=== PATIENT | female | born 1995 ===

== ENCOUNTER 2023-07-19 17:45 | Outpatient (REF) | payer MEDICAID, SELFPAY | END 2023-07-19 17:46 | disposition home or self-care (01) | LOC: HO.HHCL 17:45 | PROVIDERS: Visit Provider Emergency Medicine | DX: R30.0 Dysuria (principal) | CPT/HCPCS: 87086; 87088; 87186 ==

== ENCOUNTER 2023-08-03 10:36 | Outpatient (REF) | payer MEDICAID, OTHER, SELFPAY ==
--- NOTE | ~2023-08-03 | US_ITS ---
EXAMINATION: US DIAGNOSTIC ULTRASOUND BREAST, LEFT CLINICAL INFORMATION: 27-year-old female, complaining of palpable abnormality left breast 11:00 axis, approximately 3 cm from the nipple, sinus 3 months. No associated pain, no history of trauma, no history of infection or mastitis. Patient states the palpable focus may be decreasing in size although this is subjective. COMPARISON: None available. TECHNIQUE: Ultrasound of the breast is performed with real-time boyer scale imaging and color Doppler. Attention was given to the 11:00 axis, in the region of palpable concern left breast. FINDINGS: Within the left breast, 11:00 axis, 3 cm from the nipple, correlating with the focus of palpable concern, is an irregular hypoechoic lesion/mass, with indistinct borders, and no good through transmission, no internal color Doppler flow although there is flow just adjacent, measuring approximately 0.7 x 0.5 x 0.5 cm. It is surrounded by mildly echogenic fat and dense fibroglandular stroma. This is indeterminant, although may represent resolving infection, resolving trauma, although there is no history is to support these diagnoses. Ultimately, finding is indeterminate and ultrasound-guided biopsy is recommended. Results were discussed with the patient at time of visit, with the use of a light fixture servicer. US/US breast LT limited mamm only IMPRESSION: Indeterminate palpable lesion left breast 11:00 axis, 3 cm from the nipple, as described above. Ultrasound-guided biopsy recommended to further characterize. Findings and plan were discussed with the patient utilizing a light fixture servicer, and the patient appears to understand. ASSESSMENT: BI-RADS 4: Suspicious (subcategory 4A: Low suspicion for malignancy) RECOMMENDATION: Ultrasound-guided biopsy left breast.
== END 2023-08-03 10:37 | disposition home or self-care (01) ==
LOC: HO.MAMMO 10:36
PROVIDERS: PCP Emergency Medicine; Visit Provider Emergency Medicine
DX: N63.22 Unspecified lump in the left breast, upper inner quadrant (principal)
CPT/HCPCS: 76642

== ENCOUNTER → 2023-08-03 10:52 | Outpatient (BNV) | payer SELFPAY | PROVIDERS: PCP Emergency Medicine; Visit Provider Radiology Diagnostic Radiology | DX: N63.22 Unspecified lump in the left breast, upper inner quadrant (principal) | CPT/HCPCS: 76642 ==

== ENCOUNTER → 2023-08-04 08:14 | Outpatient (BNVA) | payer MEDICAID, OTHER, SELFPAY | PROVIDERS: PCP Emergency Medicine; Visit Provider Surgery | DX: R92.8 Other abnormal and inconclusive findings on diagnostic imaging of breast (principal) | CPT/HCPCS: 99202 ==

== ENCOUNTER 2023-08-04 08:15 | Outpatient (AMB) | payer SELFPAY ==
--- NOTE | 2023-08-04 08:16 | MHC.OFFVIS ---
Intake Vital Signs 08/04/23 08:28 Height 5 ft 7 in Weight 141 lb 8 oz BMI 22.2 BP 123/71 Blood Pressure Location Lt brachial Position Sitting Pulse 98 Intake Visit Reasons: U/s bx left breast, 11 o'clock symmetry Intake Note: Patient is seen in office for ultrasound biopsy consult of the left breast 11 o'clock symmetry. 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 She 1st noted the lump approximately 3 months ago and initially had pain associated with the lesion. She denied any overlying skin changes or nipple discharge.. She underwent workup with ultrasound of the left breast. This confirmed a hypoechoic density in the 11 o'clock position approximately 3 cm from the nipple measuring 0.7 x 0.5 x 0.5 cm felt to be indeterminate therefore ultrasound-guided core biopsy was recommended. She denies a previous history of breast problems or breast surgery. She is G0. Family history is significant for maternal grandmother with breast cancer. [facility] Family History Maternal Grandmother Breast cancer Paternal Grandmother Cancer of unknown origin Social History Alcohol intake: never Patient Tobacco Use Status: Never used Tobacco Female Reproductive History Menstrual Age of Menarche: 13 Date of last menstrual period: 07/20/23 Total pregnancies: 0 Review of Systems Const All systems reviewed & are unremarkable except as noted in HPI and below Denies chills, Denies fever(s), Denies headache(s), Denies poor appetite and Denies weakness ENT Denies headache(s) Card Denies chest pain, Denies irregular heart rhythm, Denies palpitations and Denies dyspnea Resp Denies cough, Denies excessive phlegm production and Denies dyspnea GI Denies abdominal pain, Denies bloating, Denies change in bowel habits, Denies constipation, Denies heartburn, Denies diarrhea, Denies nausea and Denies vomiting Denies urinary frequency Musc Denies back pain, Denies muscle weakness and Denies numbness Skin/Breast Denies changing lesions and Denies unusual bruising Neuro Denies headache(s), Denies numbness, Denies paresthesias and Denies weakness Psych Denies anxiety and Denies depression Endo Denies palpitations Darrin/Lymph Denies lymphadenopathy Physical Exam Const General: cooperative and no acute distress Nutritional Appearance: well nourished Orientation/consciousness: patient oriented x3 Limitations: no limitations HEENT Head: Yes normocephalic and Yes atraumatic Ears: hearing grossly normal bilaterally Chest Other: Mild fibrocystic pattern with no discrete mass appreciated in the left breast 10 o'clock position. Left breast: No skin change, no nipple retraction, no nipple discharge, no palpable mass, no enlarged lymph nodes. Right breast: No skin change, no nipple retraction, no nipple discharge, no palpable mass, no enlarged lymph nodes Resp Effort & Inspection: normal respiratory effort, no audible wheezes, no cough and no respiratory distress Cardio Jugular venous distension: no JVD GI Inspection: Yes normal to inspection Skin Other: Warm, dry, no rash Neuro General: patient oriented x3 Extrem General: Yes no clubbing, cyanosis or edema Assessment & Plan Assessment & Plan (1) Abnormal ultrasound of breast: Code(s): R92.8 - Other abnormal and inconclusive findings on diagnostic imaging of breast Plan 27-year-old female patient presenting with a three-month history of a palpable mass in the left breast noted on self examination. Indeterminate mass was identified by ultrasound an ultrasound-guided core biopsy recommended. [facility]. I recommended the patient return approximately 5-7 days following this procedure to review the pathology results. She expressed understanding and agrees with the plan. Orders: Orders US breast ndl core biopsy LT Today R92.8 - Other abnormal and inconclusive findings on diagnostic imaging of breast Coding Level of Care Code New Pt Level 4 (81667) Diagnoses Abnormal ultrasound of breast R92.8
[2023-08-04 08:28] VITALS: BP 123/71; PULSE 98; BMI 22.2
== END 2023-08-04 08:42 | disposition home or self-care (01) ==
PROVIDERS: PCP Emergency Medicine; Visit Provider Surgery
DX: R92.8 Other abnormal and inconclusive findings on diagnostic imaging of breast (principal)
CPT/HCPCS: 99204

== ENCOUNTER 2023-08-07 07:46 | Outpatient (REF) | payer MEDICAID, OTHER, SELFPAY ==
--- NOTE | ~2023-08-07 | US_ITS ---
PROCEDURE: US GUIDED BREAST BIOPSY, LEFT CLINICAL INFORMATION: Hypoechoic slightly irregular mass left breast 11:00 axis, 3 cm from the nipple, which was palpable to the patient, recommended for ultrasound-guided biopsy. COMPARISON: Ultrasound 08/03/2023. PROCEDURAL DETAILS: The details of the procedure, as well as the risks, benefits, and alternatives to the procedure were explained to the patient in detail and all of her questions were answered, after which written informed consent was obtained. Site and side were confirmed. Prior to the procedure, sonography revealed a slightly irregular hypoechoic mass with irregular margins measuring 0.5 x 0.7 x 0.5 cm at the 11:00 axis left breast, 3 cm from the nipple. A time-out was performed, the lesion intended for biopsy was targeted, and the skin of the left breast was then marked, prepped and draped in the usual sterile fashion. Using sonographic guidance, sterile technique, and 1% lidocaine without epinephrine for local anesthesia, multiple core biopsies were obtained through the targeted area with a 14G spring loaded Adynxxera core biopsy device. There was real-time confirmation of appropriate needle passage. Sampling was documented. At the completion of tissue sampling, a single butterfly-shaped metallic clip was deposited at the biopsy site. There was no evidence of immediate complication. SPECIMEN: 3 well formed core samples were obtained. DIGITAL POST-PROCEDURE MAMMOGRAPHY: Not performed due to patient age. The patient tolerated the procedure well and, after assuring adequate hemostasis, was discharged in good condition after reviewing postbiopsy breast care instructions. Final pathology results are pending. US/US breast ndl core biopsy LT IMPRESSION: 1. No immediate complication from ultrasound-guided percutaneous biopsy left breast. 2. Ultrasound was used to localize and guide marker clip placement. 3. Post procedure mammography was not performed due to patient age. Clip placement looks excellent on ultrasound images. 4. Final pathology results are pending. A separate report with final recommendations will be issued once these results are made available.
[2023-08-07] MEDS: Lidocaine HCl 1 % 20 ML VIAL 9 ML SUBCUT (09:02)
[2023-08-07] MEDS: Sodium Bicarbonate 8.4% 50 MEQ/50 ML VIAL SUBCUT (09:04)
== END 2023-08-07 07:47 | disposition home or self-care (01) ==
LOC: HO.MAMMO 07:46
PROVIDERS: PCP Emergency Medicine; Visit Provider Emergency Medicine
DX: R92.8 Other abnormal and inconclusive findings on diagnostic imaging of breast (principal)
CPT/HCPCS: 19083; 88305; 88341; 88342; 88360; A4648; C1894

== ENCOUNTER → 2023-08-07 08:00 | Outpatient (BNV) | payer SELFPAY | PROVIDERS: PCP Emergency Medicine; Visit Provider Radiology Diagnostic Radiology | DX: D24.2 Benign neoplasm of left breast (principal) | CPT/HCPCS: 19083 ==

== ENCOUNTER 2023-08-15 13:19 | Outpatient (AMB) | payer SELFPAY ==
--- NOTE | 2023-08-15 13:28 | MHC.OFFVIS ---
Intake Intake Visit Reasons: Left breast density, biopsy results Intake Note: Patient is seen in office for biopsy results, following left breast density. Pt c/o: denies any concerns here for results Chair Frame Builder Required: Yes Chair Frame Builder Language: Crop Grain Or Livestock Farmer Name: Fabiola GIRALDO Information Interpreted: non-clinical & clinical Franchise Development Manager: Franchise Development Manager Present Accompanied by: Family/Other Allergies No Known Allergies [No Known Allergies*] Allergy (Unverified 08/15/23 13:38) Medication List - Last Reconciled 08/15/23 by Juanito Rose MD No Known Home Meds HPI HPI Comments History of Present Illness Details 27-year-old female patient found to have a palpable mass on self-examination in the left breast at approximately the 11 o'clock position. She 1st noted the lump approximately 3 months ago and initially had pain associated with the lesion. She denied any overlying skin changes or nipple discharge.. She underwent workup with ultrasound of the left breast. This confirmed a hypoechoic density in the 11 o'clock position approximately 3 cm from the nipple measuring 0.7 x 0.5 x 0.5 cm felt to be indeterminate therefore ultrasound-guided core biopsy was recommended. She denies a previous history of breast problems or breast surgery. She is G0. Family history is significant for maternal grandmother with breast cancer. She underwent ultrasound-guided core biopsy on 08/07/2023. Pathology revealed: Benign breast tissue with dense lymphohistiocytic infiltrate; negative for malignancy. A copy of the pathology report was provided to the patient. She tolerated the procedure well and denies any ongoing breast symptoms. [facility] Family History Maternal Grandmother Breast cancer Paternal Grandmother Cancer of unknown origin Social History Alcohol intake: never Patient Tobacco Use Status: Never used Tobacco Female Reproductive History Menstrual Age of Menarche: 13 Review of Systems Const All systems reviewed & are unremarkable except as noted in HPI and below Denies chills, Denies fever(s), Denies headache(s), Denies poor appetite and Denies weakness ENT Denies headache(s) Card Denies chest pain, Denies irregular heart rhythm, Denies palpitations and Denies dyspnea Resp Denies cough, Denies excessive phlegm production and Denies dyspnea GI Denies abdominal pain, Denies bloating, Denies change in bowel habits, Denies constipation, Denies heartburn, Denies diarrhea, Denies nausea and Denies vomiting Denies urinary frequency Musc Denies back pain, Denies muscle weakness and Denies numbness Skin/Breast Denies changing lesions and Denies unusual bruising Neuro Denies headache(s), Denies numbness, Denies paresthesias and Denies weakness Psych Denies anxiety and Denies depression Endo Denies palpitations Darrin/Lymph Denies lymphadenopathy Physical Exam Const General: cooperative and no acute distress Nutritional Appearance: well nourished Orientation/consciousness: patient oriented x3 Limitations: no limitations HEENT Head: Yes normocephalic and Yes atraumatic Ears: hearing grossly normal bilaterally Chest Other: Exam deferred Resp Effort & Inspection: normal respiratory effort, no audible wheezes, no cough and no respiratory distress Cardio Jugular venous distension: no JVD GI Inspection: Yes normal to inspection Skin Other: Warm, dry, no rash Neuro General: patient oriented x3 Extrem General: Yes no clubbing, cyanosis or edema Assessment & Plan Assessment & Plan (1) Abnormal ultrasound of breast: Code(s): R92.8 - Other abnormal and inconclusive findings on diagnostic imaging of breast Plan 27-year-old female patient found to have a palpable mass in the left breast, status post ultrasound-guided core biopsy last week. She tolerated the procedure well and denies any ongoing breast symptoms. Pathology is benign with no evidence of malignancy. She should continue observation and call for any new concerns. Coding Level of Care Code Est Pt Level 3 (27952) Diagnoses Abnormal ultrasound of breast R92.8
== END 2023-08-15 13:55 | disposition home or self-care (01) ==
PROVIDERS: PCP Emergency Medicine; Visit Provider Surgery
DX: R92.8 Other abnormal and inconclusive findings on diagnostic imaging of breast (principal)
CPT/HCPCS: 99213

== ENCOUNTER → 2023-08-15 13:19 | Outpatient (BNVA) | payer MEDICAID, OTHER, SELFPAY | PROVIDERS: PCP Emergency Medicine; Visit Provider Surgery | DX: R92.8 Other abnormal and inconclusive findings on diagnostic imaging of breast (principal) | CPT/HCPCS: 99212 ==

== ENCOUNTER 2023-09-29 17:45 | Outpatient (REF) | payer MEDICAID, OTHER, SELFPAY | END 2023-09-29 17:46 | disposition home or self-care (01) | LOC: HO.HHCLNP 17:45 | PROVIDERS: Visit Provider Family Medicine | DX: R30.0 Dysuria (principal) | CPT/HCPCS: 87086; 87088; 87186 ==

== ENCOUNTER 2023-11-29 12:51 | Outpatient (REF) | payer MEDICAID, OTHER, SELFPAY | END 2023-11-29 12:52 | disposition home or self-care (01) | LOC: HO.CHCLNP 12:51 | PROVIDERS: Visit Provider Internal Medicine | DX: K21.9 Gastro-esophageal reflux disease without esophagitis (principal) | CPT/HCPCS: 87338 ==

== ENCOUNTER 2023-12-22 13:14 | Outpatient (REF) | payer MEDICAID, OTHER, SELFPAY ==
[2023-12-22 15:56] LABS: Bacterial Vaginosis PCR POSITIVE (Negative); Candida Group PCR DETECTED (Not Detect); Candida glab krusei PCR NOT DETECTED (Not Detect); Trichomonas vaginalis PCR NOT DETECTED (Not Detect)
[2023-12-22 16:31] LABS: CT PCR NOT DETECTED (Not Detect.); NG PCR NOT DETECTED (Not Detect.)
== END 2023-12-22 13:15 | disposition home or self-care (01) ==
LOC: HO.CHCLNP 13:14
PROVIDERS: Visit Provider Pediatrics
DX: Z01.419 Encounter for gynecological examination (general) (routine) without abnormal findings (principal)
CPT/HCPCS: 0352U; 0353U; 88142

== ENCOUNTER 2024-02-05 12:18 | Outpatient (REF) | payer MEDICAID, OTHER, SELFPAY ==
--- NOTE | ~2024-02-05 | US_ITS ---
EXAMINATION: US DIAGNOSTIC ULTRASOUND BREAST, LEFT CLINICAL INFORMATION: 6 month follow-up for post benign biopsy of an inflammatory mass left breast 11:00 axis, 3 cm from the nipple. COMPARISON: 08/07/2023 left breast US biopsy, 08/03/2023. TECHNIQUE: Ultrasound of the left breast is performed with real-time boyer scale imaging and color Doppler. Attention to the previously biopsied abnormality at 11:00, 3 cm from the nipple was given. FINDINGS: Previously seen inflammatory mass is again identified although significantly smaller on today's examination. It currently measures 3 x 3 x 3 mm, with internal biopsy clip present. Previously, 08/03/2023, the abnormality measured 0.7 x 0.5 x 0.5 cm. Finding is decreased in size, and clearly benign, with prior benign biopsy. Patient states no current symptomatology or concern. No further follow-up recommended. Results are discussed with the patient at time of visit. US/US breast LT limited mamm only IMPRESSION: No findings suspicious for malignancy. Inflammatory abnormality left breast 11:00, previously biopsied with benign result, is significantly smaller and benign. Patient states no current symptomatology or concern. Recommend the patient begin screening mammography at age 42. ASSESSMENT: BI-RADS 2 - Benign Findings RECOMMENDATION: Mammo at 40 or earlier if clinically needed This patient's information was entered into a reminder system with a target due date for their next mammogram.
== END 2024-02-05 12:19 | disposition home or self-care (01) ==
LOC: HO.MAMMO 12:18
PROVIDERS: PCP Internal Medicine; Visit Provider Internal Medicine
DX: Z98.890 Other specified postprocedural states (principal); N63.22 Unspecified lump in the left breast, upper inner quadrant
CPT/HCPCS: 76642

== ENCOUNTER → 2024-02-05 13:00 | Outpatient (BNV) | payer OTHER, SELFPAY | PROVIDERS: PCP Internal Medicine; Visit Provider Radiology Diagnostic Radiology | DX: N63.22 Unspecified lump in the left breast, upper inner quadrant (principal) | CPT/HCPCS: 76642 ==

== ENCOUNTER 2024-04-12 13:22 | Outpatient (REF) | payer SELFPAY ==
[2024-04-12 14:14] LABS: MANUAL DIFF FLAG NO
[2024-04-12 14:21] LABS: Appearance Urine Cloudy; Color Urine Yellow; Glucose Urine UA Negative (Negative); Leukocyte Esterase Urine Negative (Negative); Nitrite Urine Positive (Negative); PH 6.5 (5.0-9.0); Specific Gravity - Urine 1.025 (1.005-1.025); UMIC TRIGGER UACC YES; Urine Blood Negative (Negative); Urine Ketones Negative (Negative); Urine Protein Negative (Neg-Trace)
[2024-04-12 14:27] LABS: Bacteria Urine 4+ (None Seen); Hyaline Casts Urine 0-2 /LPF (0-2); RBC Urine 0-2 /HPF (0-2); Squamous Epithelial Cell Urine 0-2 /HPF (0-2); UACC Culture Trigger YES; WBC Urine 0-5 /HPF (0-5)
[2024-04-12 14:28] LABS: Basophils Percent Auto 0.4 % (0-2); Eosinophils Absolute Auto 0.1 X10*3/uL (0.0-0.4); Eosinophils Percent Auto 1.1 % (0-4); Hematocrit 38.3 % (37.0-47.0); Hemoglobin 12.6 g/dl (12.0-16.0); Imm Gran Abs Auto 0.02 X10*3/uL (0.00-0.03); Imm Gran Pct Auto 0.3 % (0.0-0.4); Lymphocytes Absolute Auto 2.6 X10*3/uL (1.2-4.9); Lymphocytes Percent Auto 34.4 % (20-40); Mean Corpuscular HGB Conc 32.9 g/dl (31.0-35.0); Mean Corpuscular Hemoglobin 32.2 pg (27.0-33.0); Mean Platelet Volume 11.3 fL (9.4-12.3); Monocytes Absolute Auto 0.6 X10*3/uL (0.1-1.2); Monocytes Percent Auto 7.9 % (2-11); Neutrophils Absolute Auto 4.3 x10*3/uL (2.0-8.3); Neutrophils Percent Auto 55.9 % (45-73); Platelet Count 269 X10*3/uL (160-400); Red Blood Count 3.91 X10*6/uL (4.20-5.50); Red Cell Distribution Width 12.7 % (11.0-16.0); White Blood Count 7.6 X10*3/uL (4.8-10.8)
[2024-04-12 14:40] LABS: Alanine Aminotransferase 17 U/L (0-31); Albumin Level 3.7 g/dL (3.5-5.0); Alkaline Phosphatase 44 U/L (39-117); Anion Gap 11 (12-20); Aspartate Amino Transferase 27 U/L (5-31); Bilirubin Total 0.2 mg/dL (0.0-1.0); Blood Urea Nitrogen 20 mg/dL (9-16); Calcium 8.9 mg/dL (8.4-10.2); Carbon Dioxide 25 mmol/L (22-29); Chloride 104 mmol/L (96-108); Estimated Glomerular Filt Rate 53; Glucose Random 83 mg/dL (60-115); Lipase 36 U/L (8-78); Potassium 4.3 mmol/L (3.3-5.1); Sodium 136 mmol/L (135-145); Total Protein 7.2 g/dL (6.5-8.0)
[2024-04-12 15:48] LABS: HIV AB/AG Nonreactive (Nonreactive); HIV Num 1 0.05 S/CO (0.00-0.99); ~Hepatitis C Antibody Nonreactive (Nonreactive)
== END 2024-04-12 13:23 | disposition home or self-care (01) ==
LOC: HO.CHCLDS 13:22
PROVIDERS: Visit Provider Family Medicine
DX: R10.13 Epigastric pain (principal); Z13.30 Encounter for screening examination for mental health and behavioral disorders, unspecified
CPT/HCPCS: 36415; 80053; 81001; 83690; 85025; 86803; 87086; 87088; 87186; 87389

== ENCOUNTER 2024-07-09 11:06 | Outpatient (REF) | payer SELFPAY ==
[2024-07-09 15:21] LABS: H Pylori Breath Test Negative (Negative)
== END 2024-07-09 11:07 | disposition home or self-care (01) ==
LOC: HO.LNP 11:06
PROVIDERS: PCP Internal Medicine; Visit Provider Nurse Practitioner
DX: R10.10 Upper abdominal pain, unspecified (principal); A04.8 Other specified bacterial intestinal infections
CPT/HCPCS: 83013

== ENCOUNTER 2024-07-09 11:06 | Outpatient (AMB) | payer OTHER, SELFPAY ==
[2024-07-09 11:18] VITALS: BP 129/78; PULSE 95; BMI 25.2
--- NOTE | 2024-07-09 11:18 | A.OFFVIS_ITS ---
Vital Signs 07/09/24 11:18 Height 5 ft 6 in Weight 156 lb 1.396 oz BMI 25.2 BP 129/78 Blood Pressure Location Lt brachial Position Sitting Pulse 95 Intake Visit Reasons: Gastroesophageal reflux disease (GERD) Intake Note: Serenity presents in office today as a new patient for GERD. CC: Patient c/o acid reflux and heartburn for about 3 years. Per patient she had an EGD in [facility] about 2 months ago, she was found to be H Pylori positive and was treated for it. She continues to take Levosupliride 25 Daily but states that she has not noticed any improvement. Pt also c/o nausea, a lot of epigastric pain, constipation and foul smelling stools. 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 She is referred by [facility]. PMX Breast mass Gastritis GERD Family history of colon cancer-father * SURGICAL HISTORY Breast biopsy * ALLERGIES: NKDA * [id number] LABS: Laboratory Tests 04/12/24 13:25 WBC 7.6 Hgb 12.6 Hct 38.3 Plt Count 269 Estimated GFR 53 Total Bilirubin 0.2 AST 27 ALT 17 Alkaline Phosphatase 44 TODAY'S VISIT English #[id number], [id number] She was recently tx'd for H pylori w/o improvement, the only medication she is taking is Levosupliride which is a reglan type medication not approved for use in the [place] (rx'ed in ). She has had this problem for 3-4 years with a lot of GERD and HB and pain in the stomach wtih nausea. THe pain is in the epigastric area. She has the pain both when the stomach is empty and when she eats, and she has the most nausea in the AM. She vomits occasionally r/t the pain. The pain is quite intense and at times 10/10 and causes her to be light headed with tingeling in her hands. The pain is worst around 2-4 oclock during the day and her largest meal is at lunch. She suffers CIC that started about a year ago. She will only move her bowels 1-2 x a week. She has not tried any laxatives. She has only tried famotidine and ranitidine. Her diet is mostly meats and rice. She drinks only water. All of this is leaving her with a bad taste in her throat. She has a globus sensation. She was tx'ed with levaquin and amox. Both her mother and father have stomach problems and her mother had PUD so severe she vomited blood. She would like to get , but she states she is now on BC and there is no chance that she is . ROV 6 weeks. [facility] Surgical History History of esophagogastroduodenoscopy (EGD) H/O breast biopsy Family History Maternal Grandmother Breast cancer Paternal Grandmother Cancer of unknown origin Social History Alcohol intake: never Patient Tobacco Use Status: Never used Tobacco Female Reproductive History Menstrual Age of Menarche: 13 Review of Systems Const Denies fatigue, Denies fever(s), Denies night sweats, Denies poor appetite and Denies weight loss ENT Reports Normal hearing present, Denies dental pain, Denies dysphagia, Denies hearing loss, Denies mouth pain, Denies odynophagia, Denies throat swelling, Denies tongue swelling and Reports other (Dentition adequate) Card Reports no additional complaints Resp Reports no additional complaints GI Details: Reports abdominal pain, Denies melena, Denies bloating, Denies hematochezia, Reports constipation, Denies GI cramping, Denies dysphagia, Denies excessive flatus, Denies early satiety, Reports heartburn, Denies diarrhea, Reports nausea, Denies odynophagia, Reports vomiting and Denies hematemesis Skin/Breast Denies pruritus, Denies lesions, Denies rash and Denies jaundice Neuro Reports Normal hearing present and Denies Abnormal speech present Endo Denies fatigue Aller/Immun Denies throat swelling and Denies tongue swelling Physical Exam Vital Signs: Last Vital Signs Pulse 95 07/09/24 11:18 BP 129/78 07/09/24 11:18 BMI result Body Mass Index 25.2 Const General: cooperative, no acute distress, well developed and well groomed Nutritional Appearance: average body habitus and well nourished Orientation/consciousness: oriented to person, oriented to place and oriented to time Limitations: language barrier HEENT Head: Yes normocephalic and Yes atraumatic Eyes General: appearance normal, both eyes and all related structures Pupils: Equal, round and reactive pupils present Neck Neck: Yes normal visual inspection and Yes no lymphadenopathy Thyroid: Thyroid normal Resp Effort & Inspection: normal respiratory effort and able to speak in complete sentences Auscultation: clear to auscultation bilaterally Cardio Rate: regular rate Rhythm: regular rhythm Heart sounds: Normal, physiologic split S2 sound present Peripheral pulses: radial pulses present and posterior tibial pulses present GI Inspection: No distended and No Abdominal panniculus present Palpation (GI): Soft to palpation, Tenderness to palpation present (GI) in the epigastrum, no guarding, not rigid and No hepatosplenomegaly present Percussion: Yes normal to percussion Auscultation: normal bowel sounds Rectal Exam - Female: deferred Skin General skin exam: no rashes or lesions noted, turgor normal, skin not dry, no jaundice, No spider nevi and no striae Rashes: no rashes Nails: normal Neuro General: oriented to person, oriented to place and oriented to time Cranial nerves: Yes Equal, round and reactive pupils present and Yes Normal hearing present Speech: No Abnormal speech present Extrem General: Yes normal to inspection, No clubbing, No cyanosis and No edema Psych Appearance: grossly normal and well kempt Mental Status: mental status grossly normal Speech and movement: Normal speech and movement present Affect: normal affect Attitude: cooperative Thought process: Normal thought process present and not confabulating Thought content: Normal thought content present Insight: Good insight present (Psych) Judgement: Good judgement present (Psych) Assessment & Plan Assessment & Plan (1) GERD (gastroesophageal reflux disease): Code(s): K21.9 - Gastro-esophageal reflux disease without esophagitis Category: Medical (2) H. pylori infection: Comment: Treated in the [place] with Levaquin/amoxicillin Code(s): A04.8 - Other specified bacterial intestinal infections Category: Medical (3) Chronic idiopathic constipation: Code(s): K59.04 - Chronic idiopathic constipation Category: Medical (4) Nausea and vomiting: Code(s): R11.2 - Nausea with vomiting, unspecified Category: Medical (5) Upper abdominal pain: Code(s): R10.10 - Upper abdominal pain, unspecified Category: Medical Plan English #[id number], [id number] She was recently tx'd for H pylori w/o improvement, the only medication she is taking is Levosupliride which is a reglan type medication not approved for use in the [place] (rx'ed in ). She has had this problem for 3-4 years with a lot of GERD and HB and pain in the stomach wtih nausea. THe pain is in the epigastric area. She has the pain both when the stomach is empty and when she eats, and she has the most nausea in the AM. She vomits occasionally r/t the pain. The pain is quite intense and at times 10/10 and causes her to be light headed with tingeling in her hands. The pain is worst around 2-4 oclock during the day and her largest meal is at lunch. She suffers CIC that started about a year ago. She will only move her bowels 1-2 x a week. She has not tried any laxatives. She has only tried famotidine and ranitidine. Her diet is mostly meats and rice. She drinks only water. All of this is leaving her with a bad taste in her throat. She has a globus sensation. She was tx'ed with levaquin and amox. Both her mother and father have stomach problems and her mother had PUD so severe she vomited blood. She would like to get , but she states she is now on BC and there is no chance that she is . ROV 6 weeks. Orders: Orders US abdomen complete Today R10.10 - Upper abdominal pain, unspecified TSH reflex Free T4 Today R10.10 - Upper abdominal pain, unspecified H Pylori Breath Test Today A04.8 - Other specified bacterial intestinal infections, R10.10 - Upper abdominal pain, unspecified EGD - GI Use Only Today R10.10 - Upper abdominal pain, unspecified Comprehensive Met. Panel Today R10.10 - Upper abdominal pain, unspecified, R11.2 - Nausea with vomiting, unspecified Complete Blood Count Auto Diff Today R10.10 - Upper abdominal pain, unspecified, R11.2 - Nausea with vomiting, unspecified Medications: New sennosides (Senna Laxative) 17.2 mg (2 x 8.6 mg) PO BEDTIME 60 tabs 6RF K59.04 - Chronic idiopathic constipation pantoprazole (Protonix) 40 mg PO BID 60 tabs 6RF 30 days Coding Level of Care Code New Pt Level 3 (76692) Diagnoses GERD (gastroesophageal reflux disease) K21.9 H. pylori infection A04.8 Chronic idiopathic constipation K59.04 Nausea and vomiting R11.2 Upper abdominal pain R10.10
== END 2024-07-09 12:59 | disposition home or self-care (01) ==
PROVIDERS: PCP Internal Medicine; Visit Provider Nurse Practitioner
DX: K21.9 Gastro-esophageal reflux disease without esophagitis (principal); A04.8 Other specified bacterial intestinal infections; K59.04 Chronic idiopathic constipation; R11.2 Nausea with vomiting, unspecified; R10.10 Upper abdominal pain, unspecified
CPT/HCPCS: 99203

== ENCOUNTER 2024-08-01 09:03 | Outpatient (REF) | payer OTHER, SELFPAY ==
--- NOTE | ~2024-08-01 | US_ITS ---
EXAMINATION: US ABDOMEN COMPLETE CLINICAL INFORMATION: Upper abdominal pain, gastroesophageal reflux disease. COMPARISON: None available. TECHNIQUE: Real-time imaging of the abdominal viscera. Limited visualization due to bowel gas. FINDINGS: PANCREAS: Limited visualization of pancreatic tail and head. Imaged portion of pancreatic body is unremarkable. ABDOMINAL AORTA: The proximal, mid, and distal segments are normal in caliber. INFERIOR VENA CAVA: Visualized portions are normal. LIVER: The liver is normal in size. The liver contour is normal. Parenchymal echogenicity is normal. Limited visualization GALLBLADDER: Gallstones. No gallbladder wall thickening COMMON BILE DUCT: Normal in caliber measuring 0.3 cm in diameter. RIGHT KIDNEY: No hydronephrosis. No renal calculi. Limited visualization. The kidney measures 11.5 cm in maximum dimension. LEFT KIDNEY: No hydronephrosis. No renal calculi. Limited visualization. The kidney measures 10.4 cm in maximum dimension. SPLEEN: The spleen measures 9.4 cm in maximum dimension. FREE FLUID: None. US/US abdomen complete IMPRESSION: Unremarkable exam. Electronically signed by: Yudy Denny MD 08/05/2024 05:16 AM [facility]
== END 2024-08-01 09:04 | disposition home or self-care (01) ==
LOC: HO.US 09:03
PROVIDERS: PCP Family Medicine; Visit Provider Nurse Practitioner
DX: R10.10 Upper abdominal pain, unspecified (principal)
CPT/HCPCS: 76700

== ENCOUNTER 2024-08-05 16:07 | Outpatient (REF) | payer OTHER, SELFPAY | END 2024-08-05 16:08 | disposition home or self-care (01) | LOC: HO.CHCLNP 16:07 | PROVIDERS: Visit Provider Family Medicine | DX: R30.0 Dysuria (principal) | CPT/HCPCS: 87086; 87088; 87186 ==

== ENCOUNTER 2024-08-19 09:24 | Outpatient (REF) | payer OTHER, SELFPAY ==
[2024-08-19 09:43] LABS: MANUAL DIFF FLAG NO
[2024-08-19 10:46] LABS: Basophils Percent Auto 0.2 % (0-2); Eosinophils Absolute Auto 0.1 X10*3/uL (0.0-0.4); Eosinophils Percent Auto 1.3 % (0-4); Hematocrit 39.4 % (37.0-47.0); Hemoglobin 12.8 g/dl (12.0-16.0); Imm Gran Abs Auto 0.01 X10*3/uL (0.00-0.03); Imm Gran Pct Auto 0.2 % (0.0-0.4); Lymphocytes Absolute Auto 1.7 X10*3/uL (1.2-4.9); Lymphocytes Percent Auto 36.6 % (20-40); Mean Corpuscular HGB Conc 32.5 g/dl (31.0-35.0); Mean Corpuscular Hemoglobin 31.6 pg (27.0-33.0); Mean Corpuscular Volume 97.3 fL (80.0-98.0); Monocytes Absolute Auto 0.3 X10*3/uL (0.1-1.2); Monocytes Percent Auto 6.7 % (2-11); Neutrophils Absolute Auto 2.6 x10*3/uL (2.0-8.3); Platelet Count 277 X10*3/uL (160-400); Red Blood Count 4.05 X10*6/uL (4.20-5.50); Red Cell Distribution Width 12.9 % (11.0-16.0); White Blood Count 4.8 X10*3/uL (4.8-10.8)
[2024-08-19 11:36] LABS: Alanine Aminotransferase 26 U/L (0-31); Albumin Level 3.9 g/dL (3.5-5.0); Alkaline Phosphatase 56 U/L (39-117); Anion Gap 7 (12-20); Aspartate Amino Transferase 27 U/L (5-31); Bilirubin Total 0.4 mg/dL (0.0-1.0); Blood Urea Nitrogen 11 mg/dL (9-16); Calcium 8.4 mg/dL (8.4-10.2); Carbon Dioxide 26 mmol/L (22-29); Chloride 111 mmol/L (96-108); Estimated Glomerular Filt Rate > 60; Glucose Random 76 mg/dL (60-115); Potassium 3.7 mmol/L (3.3-5.1); Sodium 140 mmol/L (135-145); TSH reflex Free T4 1.87 uIU/mL (0.32-4.0); Total Protein 7.2 g/dL (6.5-8.0)
--- OUTSIDE RECORDS SUMMARY | 2024-08-19 13:48 | XMS_ITS | Encounter Summary ---
Author Organization [employer] Address [address] [place] [address] Care Team Providers Care Core Winder Machine Operator Name Role Phone Marlyn De La O MD Primary Care Provider [phone] Encounter Details Date Type Department Care Team ([facility] st Contact Info) Description 08/05/2024 10:30 AM EST Office Visit [facility] [address] [place], [place] [phone] Marlyn De La O MD [address] [place], [place] [phone] Dysuria (Primary Dx) Social History Tobacco Use Types Packs/Day Years Used Date Smoking Tobacco: Never Passive Smoke Exposure: Never Smokeless Tobacco: Never Alcohol Use Standard Drinks/Week Comments Not Currently 0 (1 standard drink = 0.6 oz pur e alcohol) Depression Answer Date Recorded Patient Health Questionnaire-9 Score 2 08/05/2024 Patient Health Questionnaire-9 Score 2 08/05/2024 Last PHQ-9: Questionnaire Data Not on file 0 08/05/2024 Housing Stability Answer Date Recorded What is your housing situation today? I have yesy callahan 03/06/[address] you li ve. Do you have problems with any of the following? None of the above 03/06/2024 Food Insecurity Answer Date Recorded Within the past 12 months, y ou worried that your food would run out before you got money to buy more: Never True 03/06/2024 Within the past 12 months,th e food you bought just didn't last and you didn't have enough money to get more: Never True Transportation Answer Date Recorded In the past 12 months, has l ack of transportation kept you from medical appts, meetings, work or from getting things needed for daily living? No 03/06/2024 Utilities Answer Date Recorded In the past 12 months, has t he electric, gas, oil or water company threatened to shut off services in your home? No 03/06/2024 Depression Answer Date Recorded Patient Health Questionnaire-2 Score 0 08/05/2024 Internet Access Answer Date Recorded Internet Access Q1 Yes 03/25/2024 Internet Access Q2 Not on file 03/25/2024 Comments No Sex and Gender Information Value Date Recorded Sex Assigned at Female 07/19/2023 4:26 PM EST Legal Sex Female 4:20 PM EST Gender Identity Female 07/19/2023 4:26 PM EST Sexual Orientation Straight 07/19/2023 4: 46 PM EST documented as of this encounter Last Filed Vital Signs Vital Sign Reading Time Taken Comments Blood Pressure 116/70 08/05/2024 10:21 AM EST Pulse 86 08/05/2024 10:21 AM EST Temperature 36.4 ??C (97.6 ??F) 08/05/2024 10:[address] Respiratory Rate 20 08/05/2024 10:21 AM EST Oxygen Saturation 98% 08/05/2024 10:21 AM EST Inhaled Oxygen Concentration - - Weight 70.6 kg (155 lb 9.6 oz) 08/05/2024 10:21 AM EST Height 170.2 cm (5' 7 ) 08/05/2024 10:21 AM EST Body Mass Index 24.37 08/05/2024 10:21 AM EST documented in this encounter Progress Notes * Marlyn De La O MD - 08/05/2024 10:30 AM EST Subjective Patient ID: Serenity GEIGER is a 28 y.o. female who presents for Nausea. 28 y.o. presents request for test. Was suppose to get physical exam today but reports already had it done. Does not recall date of her last LMP, not using control. Report she has nausea, but is not able to elaborate on the details of the nausea. Nausea: Pt has been experiencing nausea but is unsure when it began. She is not sure if she is but is actively trying to conceive. She also reports foul odor for the past 2 days. LMP: 06/2024, unsure of start date. Review of Systems Constitutional: Negative for appetite change, fatigue and fever. HENT: Negative for congestion, postnasal drip and rhinorrhea. Eyes: Negative for discharge and redness. Respiratory: Negative for apnea, cough, chest tightness and shortness of breath. Cardiovascular: Negative for chest pain. Gastrointestinal: Negative for abdominal pain. Endocrine: Negative for polyphagia. Genitourinary: Positive for dysuria. Negative for difficulty urinating and urgency. Musculoskeletal: Negative for arthralgias. Neurological: Negative for dizziness, light-headedness, numbness and headaches. Hematological: Negative for adenopathy. Does not bruise/bleed easily. Objective Visit Vitals BP 116/70 (BP Location: Right arm, Patient Position: Sitting, BP Cuff Size: Large adult) Pulse 86 Temp 97.6 ??F (36.4 ??C) (Oral) Resp 20 Ht 5' 7 (1.702 m) Wt 155 lb 9.6 oz (70.6 kg) LMP (LMP Unknown) SpO2 98% BMI 24.37 kg/m?? OB Status Having periods Smoking Status Never BSA 1.83 m?? Physical Exam Constitutional: General: She is not in acute distress. Appearance: She is not ill-appearing. HENT: Head: Normocephalic and atraumatic. Nose: No congestion. Pulmonary: Effort: Pulmonary effort is normal. No respiratory distress. Breath sounds: Normal breath sounds. Musculoskeletal: Cervical back: Normal range of motion. Neurological: General: No focal deficit present. Mental Status: She is alert. Psychiatric: Mood and Affect: Mood normal. Assessment/Plan Problem List Items Addressed This Visit Nervous Dysuria - Primary Ordered UA for further evaluation. Prescribing Macrobid for Sx. Discussed family planning and expectations after DC OCPs. Advised to begin Supplementation Relevant Medications Nitrofurantoin, Macrocrystal-Monohydrate (Macrobid) 100 MG Capsule Multivitamin () 27-0.8 MG Tablet Relevant Orders POCT Urinalysis (Completed) POCT Urine (Completed) Culture, Urine, Routine Scribe Attestation: By signing my name below, Denise Kingrez, attest that this documentation has been prepared under the direction of Marlyn De La O MD. documented in this encounter Miscellaneous Notes * Assessment & Plan Note - Denise Rick - 08/05/2024 11:13 AM ESTAssociated Problem(s): Dysuria Ordered UA for further evaluation. Prescribing Macrobid for Sx. Discussed family planning and expectations after DC OCPs. Advised to begin Supplementation Relevant Medications Nitrofurantoin, Macrocrystal-Monohydrate (Macrobid) 100 MG Capsule Multivitamin () 27-0.8 MG Tablet documented in this encounter Plan of Treatment Not on file documented as of this encounter Procedures Procedure Name Priority Date/Time Associated Diagnosis Comments POCT , URINE Routine 08/05/2024 10:57 AM EST Dysuria POCT URINALYSIS DIPSTICK Routine 08/05/2024 10:57 AM EST Dysuria CULTURE, URINE, ROUTINE Routine 08/05/2024 12:00 AM EST Dysuria documented in this encounter Results * POCT Urine (08/05/2024 10:57 AM EST) Preg Test, Ur Negative Negative, Indeterminate, None Detected, Invalid, Specimen unsatisfactory for evaluation, Weakly Positive QC Media Lot # [id number] Lot# Expiration Date Urine 08/05/2024 10:5 7 AM EST Marlyn De La O MD POINT OF CARE TEST ENTER/EDIT ORDERABLES Final Result * (ABNORMAL) POCT Urinalysis (08/05/2024 10:57 AM EST) Color, UA Yellow Clarity, UA Clear Glucose, UA Negative Bilirubin, UA Negative Ketones, UA Positive Comment:trace Spec Grav, UA 1.025 Blood, UA Negative Negative, None Detected pH, UA 7.0 Protein, UA Negative Urobilinogen, UA 0.2 Leukocytes, UA Negative Negative, Rare, Trace Nitrite, UA Positive(A) Negative, None Detected Appearance, UA clear QC Media Lot # [id number] Lot# Expiration Date [id number] Urine 08/05/2024 10:5 7 AM EST Marlyn De La O MD POINT OF CARE TEST ENTER/EDIT ORDERABLES Final Result * Culture, Urine, Routine (08/05/2024 12:00 AM EST) Urine Urine specimen obtained by clean catch procedure / Unknown 08/05/2024 08/05/2024 Comment:UACC Narrative [facility] - 08/08/2024 8:23 AM EST Escherichia coli Quant > 100,000 cfu/mL Escherichia coli: Ampicillin <=2(S) Escherichia coli: Cefazolin <=1(S) Escherichia coli: Cefepime <=0.12(S) Escherichia coli: Ceftriaxone <=0.25(S) Escherichia coli: Ciprofloxacin >=4(R) Escherichia coli: Gentamicin <=1(S) Escherichia coli: Nitrofurantoin <=16(S) Escherichia coli: Trimethoprim/Sulfamethoxazole <=20(S) Specimen Source: Urine clean catch us Marlyn De La O MD LAB MICROBIOLOGY - GENERAL OR DERABLES Final Result [facility] [address] [place] [phone] documented in this encounter Visit Diagnoses Diagnosis Dysuria- Primary documented in this encounter Additional Health Concerns Assessment Noted Time PHQ-9 Depression Total Score: 2 08/05/19 25 10:46 AM EST documented as of this encounter Care Teams Core Winder Machine Operator Relationship Specialty Start Date End Date Marlyn De La O MD [address] [place] [id number] PCP - General Family Medicine 03/14/24 documented as of this encounter
--- OUTSIDE RECORDS SUMMARY | 2024-08-19 13:48 | XMS_ITS | Encounter Summary ---
Author Organization [employer] Address [address] [place] [address] Care Team Providers Care Calendering Supervisor Name Role Phone Jeff Gomez MD Primary Care Prov ider Marlyn De La O MD Primary Care Provider [phone] Encounter Details Date Type Department Care Team (Late st Contact Info) Description 12/26/[address] [facility] [address] [place] [address] Claribel Soliman MD [address] [place] [address] Bacterial vaginosis (Primary Dx) Social History Tobacco Use Types Packs/Day Years Used Date Smoking Tobacco: Never Passive Smoke Exposure: Never Smokeless Tobacco: Never Alcohol Use Standard Drinks/Week Comments Not Currently 0 (1 standard drink = 0.6 oz pur e alcohol) Comments Unknown Sex and Gender Information Value Date Recorded Sex Assigned at Female 07/19/2023 4:26 PM EST Legal Sex Female 4:20 PM EST Gender Identity Female 07/19/2023 4:26 PM EST Sexual Orientation Straight 07/19/2023 4: 46 PM EST documented as of this encounter Plan of Treatment Not on file documented as of this encounter Visit Diagnoses Diagnosis Bacterial vaginosis- Primary Unspecified vaginitis and vulvovaginitis documented in this encounter Care Teams Calendering Supervisor Relationship Specialty Start Date End Date Jeff Gomez MD [address] [place] [address] PCP - General Internal Medicine 11/25/23 03/13/24 Marlyn De La O MD [address] [place] [address] PCP - General Family Medicine 03/14/24 documented as of this encounter
--- OUTSIDE RECORDS SUMMARY | 2024-08-19 13:48 | XMS_ITS | Encounter Summary ---
Author Organization [employer] Address [address] [facility] [address] [place] [address] Care Team Providers Care Jewelry Finisher Name Role Phone Marlyn De La O MD Primary Care Provider [phone] Encounter Details Date Type Department Care Team (Latest Contact Info) Description 08/05/2024 Travel Social History Tobacco Use Types Packs/Day Years [...] documented as of this encounter Visit Diagnoses Not on filedocumented in this encounter Additional Health Concerns Assessment Noted Time PHQ-9 Depression Total Score: 2 08/05/19 25 10:46 AM EST documented as of this encounter Care Teams Jewelry Finisher Relationship Specialty Start Date End Date Marlyn De La O MD [address] [place] [id number] PCP - General Family Medicine 03/14/24 documented as of this encounter
--- OUTSIDE RECORDS SUMMARY | 2024-08-19 13:48 | XMS_ITS | Encounter Summary ---
Author Organization [employer] Address [address] [place] [address] Care Team Providers Care School Operations Manager Name Role Phone Marlyn De La O MD Primary Care Provider [phone] Reason for Visit * Reason Onset Date Comments CHART PREP 08/02/2024 Encounter Details Date Type Department Care Team ([facility] st Contact Info) Description 08/02/2024 Telephone [facility] [address] [place], [place] [phone] Marlyn De La O MD [address] [place] [address] CHART PREP Social History Tobacco Use Types Packs/Day Years Used Date Smoking Tobacco: Never Passive Smoke Exposure: Never Smokeless Tobacco: Never Alcohol Use Standard Drinks/Week Comments Not Currently 0 (1 standard drink = 0.6 oz pur e alcohol) Depression Answer Date Recorded Patient Health Questionnaire-9 Score 5 03/14/2024 Patient Health Questionnaire-9 Score 5 03/14/2024 Last PHQ-9: Questionnaire Data Not on file 0 03/14/2024 Housing Stability Answer Date Recorded What is [...] Date Recorded Patient Health Questionnaire-2 Score 0 03/14/2024 Internet Access Answer Date Recorded Internet Access Q1 Yes 03/25/2024 Internet Access Q2 Not on file 03/25/2024 Comments No Sex and Gender Information Value Date Recorded Sex Assigned at Female 07/19/2023 4:26 PM EST Legal Sex Female 4:20 PM EST Gender Identity Female 07/19/2023 4:26 PM EST Sexual Orientation Straight 07/19/2023 4: 46 PM EST documented as of this encounter Miscellaneous Notes * Telephone Encounter - Karon Vivas MA - 08/02/2024 1:03 PM EST Chart Prep Labs: done Images: done Vaccines due: yes Referrals: complete Screenings: Overdue care gaps: Sbirt, SDOH, PHQ-9 documented in this encounter Plan of Treatment Not on file documented as of this encounter Visit Diagnoses Not on filedocumented in this encounter Additional Health Concerns Assessment Noted Time PHQ-9 Depression Total Score: 5 03/14/20 24 1:02 PM EDT documented as of this encounter Care Teams School Operations Manager Relationship Specialty Start Date End Date Marlyn De La O MD [address] [place] [id number] PCP - General Family Medicine 03/14/24 documented as of this encounter
--- OUTSIDE RECORDS SUMMARY | 2024-08-19 13:48 | XMS_ITS | Encounter Summary ---
Author Organization [employer] Address [address] [facility] [address] [place] [address] Care Team Providers Care Information Technology Coordinator Name Role Phone Jeff Gomez MD Primary Care Prov ider Marlyn De La O MD Primary Care Provider [phone] Reason for Visit * Reason Onset Date Comments Med Refill 12/24/2023 Encounter Details Date Type Department Care Team (Late st Contact Info) Description 12/24/2023 Telephone [facility] [address] [place], [place] [phone] Jeff Gomez MD [address] [place] [address] Med Refill Social History Tobacco Use Types Packs/Day Years [...] encounter Miscellaneous Notes * Telephone Encounter - Wing Nathan RN - 01/03/2024 10:47 AM EDT Tc to pt using [employer] [place], [place] [id number]. Pt reports having taken medications and just finished treatment. Pt reported that she still has some odor in urine though the odor is reducing. Denies pain when urinating, and no discharge or blood in urine. Pt reports having repeat foul odor in urine that is treated with medication. Pt also reports pain when engaged in sexual activity with male partner. Pt has not let provider know about this and partner is not using condoms recently due to pt on control. Advised pt to call back if odor in urine gets worse or continues, or in regardsto the pain during sexual activities. Pt verbalized understanding and agreement with plan. * Telephone Encounter - Ban Tidwell - 01/03/2024 9:33 AM EDT Tc from pt returning call. * Telephone Encounter - Wing Nathan RN - 01/03/2024 9:18 AM EDT Tc to pt using [employer] [place], [place] [id number]. Unable to reach pt, agricultural labor camp manager left message for pt to call back. * Telephone Encounter - Wing Nathan RN - 12/26/2023 12:11 PM EDT Please advise, tc to pt using [employer] [place], [place] [id number]. Explained BV and candidas. Pt would prefer vaginal treatment. Stated to pt that medication should be ready either today or tomorrow and to call pharmacy for status. Pt verbalized understanding and agreement with plan. ----- Message from Nurse Wing Rosas sent at 12/25/2023 4:54 PM EDT ----- Pleae call patient and ask her what she would prefer for BV and yeast treatment. Oral or vaginal treatments. Thank you, Jourdan Del Valle documented in this encounter Plan of Treatment Not on file documented as of this encounter Visit Diagnoses Not on filedocumented in this encounter Care Teams Information Technology Coordinator Relationship Specialty Start Date End Date Jeff Gomez MD [address] [place] [id number] PCP - General Internal Medicine 11/25/23 03/13/24 Marlyn De La O MD [address] [place] [id number] PCP - General Family Medicine 03/14/24 documented as of this encounter
--- OUTSIDE RECORDS SUMMARY | 2024-08-19 13:48 | XMS_ITS | Clinical Summary ---
Author Organization [employer] Address [address] [facility] 7[address] [place] [address] Care Team Providers Care Ultrasound Spec Name Role Phone Marlyn De La O MD Primary Care Provider [phone] Allergies No known active allergies Medications senna (Senokot) 8.6 MG tablet TAKE TWO TABLETS EVERY NIGHT AT BEDTIME 07/09/20 24 Active omeprazole (PriLOSEC) [address] capsule Take 1 capsule by mouth Once per day. 11/24/19 24 Active multivitamin () 27-0.8 MG tablet Take 1 tablet by mouth Once per day. 90 tablet 4 08/05/19 25 Active pantoprazole (Protonix) 40 MG EC tablet Take 1 tablet (40 mg) by mouth 2 times daily. Do not crush, chew, or split. 180 tablet 1 03/14/20 24 025 Discontinued drospirenone-e thinyl estradiol-levo mefolate calcium (Bayaz, Kassandra) 3-0.02-0.451 MG Take 1 tablet by mouth Once per day. 28 tablet 11 04/16/20 24 025 Discontinued(Th erapy completed) nitrofurantoin , macrocrystal-m onohydrate, (Macrobid) 100 MG capsule Take 1 capsule (100 mg) by mouth 2 times daily for 7 days. 14 capsule 08/05/19 25 025 Active Problems Problem Noted Date Diagnosed Date Dysuria 08/05/2024 Assessment & Plan (08/05/2024 11:13 AM EST): Ordered UA for further evaluation. Prescribing Macrobid for Sx. Discussed family planning and expectations after DC OCPs. Advised to begin Supplementation Relevant Medications Nitrofurantoin, Macrocrystal-Monohydrate (Macrobid) 100 MG Capsule Multivitamin () 27-0.8 MG Tablet Encounter for medical examination to establish c are 11/24/2023 Assessment & Plan (11/24/2023 11:53 AM EDT): Patient has no major medical conditions. She complians of acid reflux, has hc of breast mass s/p biopsy which came negative seen by surgery and observation was recommended. She has never been hospitalized. Sexually active interested in starting OCP. Menarche was at 16 LMP 11/16/23. Encounter for initial prescription of contracept jeremi pills 11/24/2023 Assessment & Plan (11/24/2023 11:55 AM EDT): Will start OCP Gastroesophageal reflux disease without esophagi tis 11/24/2023 Assessment & Plan (03/14/2024 5:13 PM EDT): -Pt denies any improvement on current medications. Discontinued Omeprazole and Famotidine. -Prescribed Pantoprazole (Protonix) 40 MG EC tablet and sucralfate (Carafate) 1 GM/10 ML -Relevant labs were ordered -Pt was referred to Gastroenterology Assessment & Plan (11/24/2023 11:56 AM EDT): Patient with bloating, gerd, lifestyle modification discussed, will order a h pylori test and will start on omeprazole Mass of upper inner quadrant of left breast 07/24 Gastritis 07/19/2023 Encounters Date Type Department Care Team Description 08/19/2024 Orders Only GENERIC EXTERNAL DATA DEPARTMENT Provider, Generic External Data 08/05/2024 10:30 AM EST Office Visit [facility] [address] [place] [address] Marlyn De La O MD Dysuria (Primary Dx) 08/05/2024 Travel 08/02/2024 Telephone [facility] [address] [place], [place] [phone] Marlyn De La O MD CHART PREP 07/12/2024 Telephone [facility] [address] [place] [phone] Marlyn De La O MD Nurse Triage 07/09/2024 Orders Only GENERIC EXTERNAL DATA DEPARTMENT Provider, Generic External Data 07/01/2024 Refill [facility] [address] [place] [address] Marlyn De La O MD 06/10/2024 Telephone [facility] [address] [place], [place] [phone] Marlyn De La O MD Annual Exam (TB for work) 05/22/2024 Refill [facility] [address] [place] [address] Marlyn De La O MD 05/20/2024 Refill [facility] [address] [place], [place] [phone] Marlyn De La O MD from Last 3 Months Immunizations Name Administration Dates Next Due Tdap 03/14/2024 Family History Medical History Relation Name Comments Hyperlipidemia Father Breast cancer Maternal Grandmother Diabetes Mother Hypertension Mother Relation Name Status Comments Father Maternal Grandmother Mother Social History Tobacco Use Types Packs/Day Years Used Date Smoking Tobacco: Never Passive Smoke Exposure: Never Smokeless Tobacco: Never Tobacco Cessation:Counseling Given: Not Answered Alcohol Use Standard Drinks/Week Comments Not Currently [...] Orientation Straight 07/19/2023 4: 46 PM EST Last Filed Vital Signs Vital Sign Reading [...] Mass Index 24.37 08/05/2024 10:21 AM EST Plan of Treatment Health Maintenance Due Date Last Done Comments Family Planning (PISQ) 2012 HPV Vaccines (1 - 3-dose series) 2012 Hepatitis B Vaccines (1 of 3 - 19+ 3-dose series) 2016 Influenza Vaccine (#1) 2025 Postp oned from 03/24/2024 (Patient Refused) SDOH Screening 03/06/2025 03/06/2024 Alcohol/Substance Use Screening 08/05/2025 08/05/2024 COVID-19 Vaccine ( - 2023-2 5 season) 2025 Postponed from 03/24 (Patient Refused) Depression Screening 08/05/2025 08/05/2024, 08/05/2024 Tobacco Screening 08/05/2025 08/05/2024 Pap Smear 12/21/2026 12/22/2023 DTaP/Tdap/Td Vaccines (2 - T d or Tdap) 03/14/2034 03/14/2024 Zoster Vaccines (1 of 2) 10/26/2047 RSV Patients and Patients Aged 60 years or older (1 - 1-dose 75+ series) 2072 HIV Screening Completed 04/12/2024 Hepatitis C Screening Completed 04/12/2024 HIB Vaccines Aged Out No longer eligi ble based on patient's age to complete this topic Hepatitis A Vaccines Aged Out No long er eligible based on patient's age to complete this topic IPV Vaccines Aged Out No longer eligi ble based on patient's age to complete this topic Meningococcal Vaccine Aged Out No bismark roselyn eligible based on patient's age to complete this topic Pneumococcal Vaccine: Pediatrics (0 to 5 Years) and At-Risk Patients (6 to 64 Years) Aged Out No longer eligible b ased on patient's age to complete this topic RSV under 20 months Aged Out No longe r eligible based on patient's age to complete this topic Rotavirus Vaccines Aged Out No longer eligible based on patient's age to complete this topic Procedures Procedure Name Priority Date/Time Associated Diagnosis Comments TSH W/REFLEX TO FT4 Routine 08/19/2024 9 :41 AM EST COMPREHENSIVE METABOLIC PANEL Routine 08/19/2024 9:41 AM EST CBC WITH AUTO DIFFERENTIAL Routine 08/19/2024 9:41 AM EST POCT , URINE Routine 08/05/2024 10:57 AM EST Dysuria POCT URINALYSIS DIPSTICK Routine 08/05/2024 10:57 AM EST Dysuria CULTURE, URINE, ROUTINE Routine 08/05/2024 12:00 AM EST Dysuria US ABDOMEN COMPLETE Routine 08/01/2024 9 :21 AM EST HELICOBACTER PYLORI, UREA BREATH TEST Routine 07/09/2024 12:18 PM EST HEPATITIS C AB W/REFL TO HCV RNA, QN, PCR Routine 04/12/2024 1:25 PM EDT Encounter for behavioral health screening HIV 1/2 ANTIGEN/ANTIBODY, FOURTH GENERATION W/RFL Routine 04/12/2024 1:25 PM EDT Encounter for behavioral health screening PAP SMEAR Routine 12/22/2023 9:40 AM EDT Encounter for gynecological examination with Papanicolaou smear of cervix from Last 3 Months or Most Recently Relevant to Health Maintenance Results * TSH with Reflex to Free T4 (08/19/2024 9:41 AM EST) TSH reflex Free T4 1.87 0.32 - 4.0 uIU/mL [facility] 08/19/2024 9:41 AM EST 08/19/2024 9:41 AM EST us Generic External Data Provider LAB BLOOD ORDERAB LES Final Result [facility] [address] [place] [phone] * (ABNORMAL) CBC auto differential (08/19/2024 9:41 AM EST) White Blood Count 4.8 4.8 - 10.8 X10*3/uL [facility] Red Blood Count 4.05(L) 4.20 - 5.50 X10*6/uL [facility] Hemoglobin 12.8 12.0 - 16.0 g/dl [facility] Hematocrit 39.4 37.0 - 47.0 % [facility] Mean Corpuscular Volume 97.3 80.0 - 98.0 fL [facility] Mean Corpuscular Hemoglobin 31.6 27.0 - 33.0 pg [facility] Mean Corpuscular HGB Conc 32.5 31.0 - 35.0 g/dl [facility] Red Cell Distribution Width 12.9 11.0 - 16.0 % [facility] Platelet Count 277 160 - 400 X10*3/uL [facility] Mean Platelet Volume 11.0 9.4 - 12.3 fL [facility] Neutrophils Percent Auto 55.0 45 - 73 % [facility] Imm Gran Pct Auto 0.2 0.0 - 0.4 % [facility] Lymphocytes Percent Auto 36.6 20 - 40 % [facility] Monocytes Percent Auto 6.7 2 - 11 % [facility] Eosinophils Percent Auto 1.3 0 - 4 % [facility] Basophils Percent Auto 0.2 0 - 2 % [facility] NRBC Pct Auto 0.0 0.0 - 0.2 /100WBC [facility] Neutrophils Absolute Auto 2.6 2.0 - 8.3 x10*3/uL [facility] Imm Gran Abs Auto 0.01 0.00 - 0.03 X10*3/uL [facility] Lymphocytes Absolute Auto 1.7 1.2 - 4.9 X10*3/uL [facility] Monocytes Absolute Auto 0.3 0.1 - 1.2 X10*3/uL [facility] Eosinophils Absolute Auto 0.1 0.0 - 0.4 X10*3/uL [facility] Basophils Absolute Auto 0.0 0.0 - 0.2 X10*3/uL [facility] NRBC Abs Auto 0.000 0.0 - 0.012 X10*3/uL [facility] 08/19/2024 9:41 AM EST 08/19/2024 9:41 AM EST us Generic External Data Provider LAB BLOOD ORDERAB LES Final Result [facility] [address] [place] [phone] * (ABNORMAL) Comprehensive Metabolic Panel (08/19/2024 9:41 AM EST) Sodium 140 135 - 145 mmol/L [facility] Potassium 3.7 3.3 - 5.1 mmol/L [facility] Chloride 111(H) 96 - 108 mmol/L [facility] Carbon Dioxide 26 22 - 29 mmol/L [facility] Anion Gap 7(L) 12 - 20 [facility] Urea Nitrogen (BUN) 11 9 - 16 mg/dL [facility] Creatinine, Serum 0.87 0.5 - 1.4 mg/dL [facility] Estimated Glomerular Filt Rate >60 [facility] Comment:Chronic Kidney Disea se: Estimated GFR < 60 mL/min/1.60p0Ekggmq Kidney Disease: Estimated GFR < 15 mL/min/1.73m2 Glucose 76 60 - 115 mg/dL [facility] Calcium 8.4 8.4 - 10.2 mg/dL [facility] Bilirubin, Total 0.4 0.0 - 1.0 mg/dL [facility] Aspartate Amino Transferase 27 5 - 31 U/L [facility] Alanine Aminotransferase 26 0 - 31 U/L [facility] Total Protein 7.2 6.5 - 8.0 g/dL [facility] Albumin Level 3.9 3.5 - 5.0 g/dL [facility] Alkaline Phosphatase 56 39 - 117 U/L [facility] 08/19/2024 9:41 AM EST 08/19/2024 9:41 AM EST us Generic External Data Provider LAB BLOOD ORDERAB LES Final Result [facility] [address] [place] [phone] [phone] * POCT Urine (08/05/2024 10:57 AM EST) Preg Test, Ur Negative Negative, Indeterminate, None Detected, Invalid, Specimen unsatisfactory for evaluation, Weakly Positive QC Media Lot # [id number] Lot# Expiration Date ,025 Urine 08/05/2024 10:5 7 AM EST us Marlyn De La O MD POINT OF [...] Media Lot # [id number] Lot# Expiration Date Urine 08/05/2024 10:5 7 AM EST us Marlyn De La O MD POINT OF CARE TEST ENTER/EDIT ORDERABLES Final Result * Culture, Urine, Routine (08/05/2024 12:00 AM EST) Urine Urine specimen obtained by clean catch procedure / Unknown 08/05/2024 08/05/2024 Comment:UACC Narrative [facility] - 08/08/2024 8:23 AM EST [...] MICROBIOLOGY - GENERAL OR DERABLES Final Result [facility] [address] [place] [phone] * US Abdomen Complete (08/01/2024 9:21 AM EST) Anatomical Region Laterality Modality Abdomen Ultrasound 08/01/2024 9:21 AM EST Narrative 08/05/2024 5:19 AM EST ? [facility] ?[address] ?[place] [address] ? Ultrasound Report ? Signed ? Patient: Joshua Sunny,Serenity R ?MR# ?? : [id number] ? : 1995 ?Acct:[id number] ? Age/Sex: 28 / F ?ADM Date: 08/01/24 ? Loc: HO.US ? Attending Dr: Yue JOHNSON ? Ordering Physician: Yue Kennedy ?? Date of Service: 08/01/24 ?? Procedure(s): US abdomen complete ?? Accession Number(s): [id number] ? cc: Yue Kennedy; Marlyn De La O MD ? EXAMINATION: ?? US ABDOMEN COMPLETE ? CLINICAL INFORMATION: ?? Upper abdominal pain, gastroesophageal reflux disease. ? COMPARISON: ?? None available. ? TECHNIQUE: ?? Real-time imaging of the abdominal viscera. ? Limited visualization due to bowel gas. ? FINDINGS: ? PANCREAS: Limited visualization of pancreatic tail and head. Imaged ?? portion of pancreatic body is unremarkable. ? ABDOMINAL AORTA: The proximal, mid, and distal segments are normal in ?? caliber. ? INFERIOR VENA CAVA: Visualized portions are normal. ? LIVER: The liver is normal in size. The liver contour is normal. ?? Parenchymal echogenicity is normal. Limited visualization ? GALLBLADDER: Gallstones. No gallbladder wall thickening ? COMMON BILE DUCT: Normal in caliber measuring 0.3 cm in diameter. ? RIGHT KIDNEY: No hydronephrosis. No renal calculi. Limited ?? visualization. ?? The kidney measures 11.5 cm in maximum dimension. ? LEFT KIDNEY: No hydronephrosis. No renal calculi. Limited visualization. ?? The kidney measures 10.4 cm in maximum dimension. ? SPLEEN: The spleen measures 9.4 cm in maximum dimension. ? FREE FLUID: None. ? US/US abdomen complete ?? IMPRESSION: ?? Unremarkable exam. ? Electronically signed by: ??Yudy Denny MD ??08/05/2024 05:16 AM EST ? Dictated By: ?Yudy Denny MD ? Signed By: ?<Electronically signed by Yudy Denny MD in OV> ? 08/05/24515 ? DD/ 0 ? TD/TT: 08/01/24 0934 ? Dried Yeast Supervisor: ? Procedure Note Donotuseinterpreter, Image - 08/05/2024 [place] [address] Ultrasound Report Signed Patient: Serenity Carranza RMR# : [id number] : 1995Acct:[id number] Age/Sex: 28 FADM Date: 08/01/24 Loc: HO.US Attending Dr: Yue JOHNSON Ordering Physician: Yue Kennedy Date of Service: 08/01/24 Procedure(s): US abdomen complete Accession Number(s): [id number] cc: Yue Kennedy; Marlyn De La O MD EXAMINATION: US ABDOMEN COMPLETE CLINICAL INFORMATION: Upper abdominal pain, gastroesophageal reflux disease. COMPARISON: None available. TECHNIQUE: Real-time imaging of the abdominal viscera. Limited visualization due to bowel gas. FINDINGS: PANCREAS: Limited visualization of pancreatic tail and head. Imaged portion of pancreatic body is unremarkable. ABDOMINAL AORTA: The proximal, mid, and distal segments are normal in caliber. INFERIOR VENA CAVA: Visualized portions are normal. LIVER: The liver is normal in size. The liver contour is normal. Parenchymal echogenicity is normal. Limited visualization GALLBLADDER: Gallstones. No gallbladder wall thickening COMMON BILE DUCT: Normal in caliber measuring 0.3 cm in diameter. RIGHT KIDNEY: No hydronephrosis. No renal calculi. Limited visualization. The kidney measures 11.5 cm in maximum dimension. LEFT KIDNEY: No hydronephrosis. No renal calculi. Limited visualization. The kidney measures 10.4 cm in maximum dimension. SPLEEN: The spleen measures 9.4 cm in maximum dimension. FREE FLUID: None. US/US abdomen complete IMPRESSION: Unremarkable exam. Electronically signed by: Yudy Denny MD 08/05/2024 05:16 AM EST RP Dictated By: Yudy Denny MD Signed By: <Electronically signed by Yudy Denny MD in OV> 08/05/2416 DD/ 0 TD/TT: 08/01/24933 Dried Yeast Supervisor: [facility] External Provider IMG US PROCEDURES Final Result * Helicobacter pylori, Urea Breath Test (07/09/2024 12:18 PM EST) H. pylori Breath Test Negative Negative [facility] Comment:Antimicrobials, prot on pump inhibitors and bismuthpreparations are known to suppress H. pylori. Ingestingthese medications within two weeks prior to performing thebreath test may produce negative test results. A positiveresult is still clinically valid. 07/09/2024 12:1 8 PM EST 07/09/2024 1:35 PM EST Result [facility] Generic External Data Provider LAB BLOOD ORDERAB LES Final Result Performing Organization Address [facility] Co de Phone Number [facility] [address] [place] [address] [phone] * Hepatitis C Antibody with Reflex to HCV, RNA, Quantitative, Real-Time PCR (04/12/2024 1:25 PM EDT) Hepatitis C Antibody Nonreactive Nonreactive [facility] Comment:Antibodies to HCV no t detected; does not exclude early acuteHCV infection. Blood Venous blood specimen / Unknown 04/12/2024 1:25 PM EDT 04/12/2024 2:11 PM EDT Result [facility] Marlyn De La O MD LAB BLOOD ORDERABLES Final Re sult Performing Organization Address [facility] Co de Phone Number [facility] [address] [place] [phone] * HIV-1/2 Antigen and Antibodies, Fourth Generation, with Reflexes (04/12/2024 1:25 PM EDT) HIV AB/AG Nonreactive Nonreactive [facility] Comment:HIV-1 p24 Ag and/or HIV-1/HIV-2 Ab not detected.A test result that is nonreactive does not exclude thepossibility of exposure to or infection with HIV-1 and/orHIV-2. Nonreactive results in this assay for individualswith prior exposure to HIV-1 and/or HIV-2 may be due toantigen and antibody levels that are below the limit ofdetection of this assay.The Divvyshot HIV Ag/Ab Combo assay result andsupplemental assay results should be interpreted inconjunction with the patient's clinical presentation,history and other laboratory results. If the results areinconsistent with clinical evidence, additional testing issuggested to confirm the result. Blood Venous blood specimen / Unknown 04/12/2024 1:25 PM EDT 04/12/2024 2:11 PM EDT us Marlyn De La O MD LAB BLOOD ORDERABLES Final Re sult [facility] [address] [place] [phone] * Pap Smear (12/22/2023 9:40 AM EDT) Swab Cervical swab / Unknown 12/22/2023 9:40 AM EDT 12/25/2023 5:00 AM EDT Narrative [facility] - 01/08/2024 5:16 PM EDT ----- ------- Name: Serenity Carranza ? Age/Sex: 28/F ? : 1995 Unit#: [id number] ?? Attend Dr: Juani Keith MD ?Re12/22/23 ?Status: DEP REF ? Location: HO.CHCLNP ? Disch: ? ----- ------- SPEC : [id number] ?RECD: 12/25/23 ? STATUS: ??SOUT ? REQ NUM: [id number] ? DAYNA: 12/22/23 ? SUBM DR: Juani Keith MD ? ENTERED: ??12/25/23 ?SP TYPE: Pap Smr ?OTHR DR: ? ORDERED: ??Pap Smear ? Interpretation ?? Satisfactory for evaluation. ?? Negative for intraepithelial lesion or malignancy. ?? Fungal organisms consistent with Shana species. ?Clinical Information LMP: 12/11/2023 Previous PAP test: First pap ? Material Received ?? ThinPrep-Cervical ----- ------- Signed (signature on file) Reema Sue Marybeth 01/08/246 ? ----- ------- ? END OF REPORT ? us Juani Keith MD LAB CYTOLOGY ORDERABLES Final Result [facility] [address] [place] [phone] from Last 3 Months or Most Recently Relevant to Health Maintenance Insurance [facility] Care Teams Ultrasound Spec Relationship Specialty Start Date End Date Marlyn De La O MD [address] [place] [address] PCP - General Family Medicine 03/14/24
--- OUTSIDE RECORDS SUMMARY | 2024-08-19 13:48 | XMS_ITS | Encounter Summary ---
Author Organization [employer] Address [address] [facility] [address] [place] [address] Care Team Providers Care General Office Clerk Name Role Phone Jeff Gomez MD Primary Care Prov ider Marlyn De La O MD Primary Care Provider [phone] Reason for Visit * Reason Onset Date Comments Results 09/28/2023 Encounter Details Date Type Department Care Team (Late st Contact Info) Description 09/28/2023 Telephone [facility] [address] [place], [place] [phone] Mary Franks FNP Results Social History Tobacco Use Types Packs/Day Years [...] encounter Miscellaneous Notes * Telephone Encounter - Alanna Fountain RN - 09/28/2023 10:27 AM EST Tc to patient via PI #[id number] regarding message below. Pt wants to know results of urine culture taken 07/19/23. Pt informed of +urine culture on same date and reports taking all antibiotic prescribed with relief of sx. Pt states that sx have returned in the last month, specially dysuria and lower abdominal discomfort. No hematuria or fever reported. Pt does not have PCP. Advised patient to come to walk in for evaluation of sx. Pt in agreement with plan of care. * Telephone Encounter - Lizeth Olsen - 09/28/2023 8:38 AM EST TC from pt requesting call back regarding Results. Type of results: Urine culture Date when done: 07/19 Facility: [facility] walk in Please contact pt at [phone] (Syriac) documented in this encounter Plan of Treatment Not on file documented as of this encounter Visit Diagnoses Not on filedocumented in this encounter Care Teams General Office Clerk Relationship Specialty Start Date End Date Jeff Gomez MD [address] [place] [phone] PCP - General Internal Medicine 11/25/23 03/13/24 Marlyn De La O MD [address] [place] [phone] PCP - General Family Medicine 03/14/24 documented as of this encounter
--- OUTSIDE RECORDS SUMMARY | 2024-08-19 13:48 | XMS_ITS | Encounter Summary ---
Author Organization [employer] Address [address] [facility] [address] [facility] [address] [place] [address] Care Team Providers Care Console Operator Name Role Phone Marlyn De La O MD Primary Care Provider [phone] Reason for Visit * Reason Onset Date Comments Med Refill 05/20/2024 Encounter Details Date Type Department Care Team ([facility] st Contact Info) Description 05/20/2024 Refill [facility] [address] [place], [place] [phone] Marlyn De La O MD [address] [place] [address] Social History Tobacco Use Types Packs/Day Years [...] Time PHQ-9 Depression Total Score: 5 03/14/20 1:02 PM EDT documented as of this encounter Care Teams Console Operator Relationship Specialty Start Date End Date Marlyn De La O MD [address] [place] [address] PCP - General Family Medicine 03/14/24 documented as of this encounter
--- OUTSIDE RECORDS SUMMARY | 2024-08-19 13:48 | XMS_ITS | Encounter Summary ---
Author Organization [employer] Address [address] [facility] [address] [place] [address] Care Team Providers Care Doctor Of Chiropractic Name Role Phone Marlyn De La O MD Primary Care Provider [phone] Reason for Visit * Reason Onset Date Comments Med Refill 07/01/2024 Encounter Details Date Type Department Care Team ([facility] st Contact Info) Description 07/01/2024 Refill [facility] [address] [place], [place] [phone] Marlyn De La O MD [address] [place] [address] Social History Tobacco Use Types Packs/Day Years [...] documented as of this encounter Care Teams Doctor Of Chiropractic Relationship Specialty Start Date End Date Marlyn De La O MD [address] [place] [address] PCP - General Family Medicine 03/14/24 documented as of this encounter
--- OUTSIDE RECORDS SUMMARY | 2024-08-19 13:48 | XMS_ITS | Encounter Summary ---
Author Organization [employer] Address [address] [place] [address] Care Team Providers Care [place] Name Role Phone Marlyn De La O MD Primary Care Provider [phone] Reason for Visit * Reason Onset Date Comments Med Refill 05/22/2024 Encounter Details Date Type Department Care Team ([facility] st Contact Info) Description 05/22/2024 Refill [facility] [address] [place], [place] [phone] Marlyn De La O MD [address] [place] [address] Social History Tobacco Use Types Packs/Day Years [...] documented as of this encounter Care Teams [place] Relationship Specialty Start Date End Date Marlyn De La O MD [address] [place] [address] PCP - General Family Medicine 03/14/24 documented as of this encounter
[2024-08-22 00:25] LABS: TS Negative Control Passed; TS Panel A 0; TS Panel B 0; TS Positive Control Passed; TSpotTB Negative (Negative)
== END 2024-08-19 09:25 | disposition home or self-care (01) ==
LOC: HO.LAB 09:24
PROVIDERS: PCP Family Medicine; Visit Provider Nurse Practitioner
DX: R11.2 Nausea with vomiting, unspecified (principal); R10.10 Upper abdominal pain, unspecified; Z11.1 Encounter for screening for respiratory tuberculosis
CPT/HCPCS: 36415; 80053; 84443; 85025; 86481

== ENCOUNTER 2024-09-24 13:10 | Outpatient (REF) | payer OTHER, SELFPAY ==
[2024-09-24 14:45] LABS: HCG Quantitative 6866 mIU/mL
--- OUTSIDE RECORDS SUMMARY | 2024-09-24 16:27 | XMS_ITS | Clinical Summary ---
Author Organization [facility] Address [address] [place] [address] 7[address] [place] [address] Care Team Providers Care Reverberatory Furnace Operator Name Role Phone Marlyn De La O MD Primary Care Provider [phone] Allergies No known active allergies Medications senna (Senokot) 8.6 MG tablet TAKE TWO TABLETS EVERY NIGHT AT BEDTIME 07/09/2024 Active omeprazole (PriLOSEC) [address] capsule Take 1 capsule by mouth Once per day. 11/24/2023 Active multivitamin () 27-0.8 MG tablet Take 1 tablet by mouth Once per day. 90 tablet 4 08/05/2024 Active Active Problems Problem Noted Date Diagnosed Date [...] Encounters Date Type Department Care Team Description 09/24/2024 Telephone [facility] [address] [place] [address] Marlyn De La O MD 09/23/2024 Telephone [facility] [address] [place] [address] Marlyn De La O MD traige 08/19/2024 Orders Only GENERIC EXTERNAL DATA DEPARTMENT Provider, Generic External Data 08/05/2024 10:30 AM EST Office Visit [facility] [address] [place] [address] Marlyn De La O MD Dysuria (Primary Dx) 08/05/2024 Travel 08/02/2024 Telephone [facility] [address] [place] [address] Marlyn De La O MD CHART PREP 07/12/2024 Telephone [facility] [address] [place] [address] Marlyn De La O MD Nurse Triage 07/09/2024 Orders Only GENERIC EXTERNAL DATA DEPARTMENT Provider, Generic External Data 07/01/2024 Refill [facility] [address] [place] [address] Marlyn De La O MD from Last [...] Alcohol/Substance Use Screening 08/05/2025 08/05/2024 COVID-19 Vaccine (1 - 2023-2 5 season) 2025 Postponed from [...] 5 Years) and At-Risk Patients (6 to 49) Years) Aged Out No longer eligible b ased on patient's age to complete this topic RSV under 20 months Aged Out No longe r eligible based on patient's age to complete this topic Rotavirus Vaccines Aged Out No longer eligible based on patient's age to complete this topic Procedures Procedure Name Priority Date/Time Associated Diagnosis Comments HCG, TOTAL, QN Routine 09/24/2024 1:11 PM EST Encounter for test, result unknown T-SPOT(R).TB Routine 08/19/2024 9:41 AM EST TSH W/REFLEX TO FT4 Routine 08/19/2024 9 [...] Recently Relevant to Health Maintenance Results * hCG, Total, Quantitative (09/24/2024 1:11 PM EST) Pathologist [facility] HCG Quantitative 6,866 mIU/mL [facility] Comment:Weeks post LMP Appro ximate hCG(Last Menstrual Period) Range (mIU/ml)3 - 4 weeks 9 - 1304 - 5 weeks 75 - 2,6005 - 6 weeks 850 - 20,8006 - 7 weeks 4000 - 100,2007 - 12 weeks 11,500 - 289,88511 - 16 weeks 18,300 - 137,35492 - 29 weeks (2nd trimester) 1,400 - 53,92563 - 41 weeks (3rd trimester) 940 - 60,000The [place] B- hCG assay is used for the early detection ofpregnancy; it cannot be used to diagnose any conditionunrelated to . If a B-hCG level is not supportedby the clinical evidence, results should be confirmed by analternative method (qualitative urine hCG, for example). Blood Venous blood specimen / Unknown 09/24/2024 1:11 PM EST 09/24/2024 2:11 PM EST us Marlyn De La O MD LAB BLOOD ORDERABLES Final Re sult [facility] [address] [place] [phone] * T-SPOT??.TB (08/19/2024 9:41 AM EST) Pathologist [facility] T Spot TB Negative Negative [facility] Comment:A negative test resu lt does not exclude the possibilityof exposure to or infection with Mycobacteriumtuberculosis (M. tuberculosis). Patients with recentexposure to TB infected individuals exhibiting anegative T-SPOT.TB result should be considered forretesting within 6 weeks or if other relevant clinicalsymptoms indicate. Results from T-SPOT.TB testing mustbe used in conjunction with each individual'sepidemiological history, current medical status,and results of other diagnostic evaluations.The T-SPOT.TB test is qualitative and results arereported as positive, borderline, or negative, giventhat the test controls perform as expected. In linewith the Centers for Disease Control and Prevention's2010 recommendation to report quantitative measurementsalongside the qualitative result, the laboratoryprovides spot counts for informational purposes only.The T-SPOT.TB test should not be interpreted as aquantitative test. TS PANEL A 0 [facility] TS PANEL B 0 [facility] Negative Control Passed [facility] Positive Control Passed [facility] Comment:For additional infor celestino, please refer tohttp://education.Skylabs/faq/VQR277(This link is being provided for informational/educational purposes only.)THIS TEST WAS PERFORMED AT:[employer] [id number] [place] [address]BHKBXSOKAELYN WHITTAKER MD,PHD 08/19/2024 9:41 AM EST 08/19/2024 9:41 AM EST us Marlyn De La O MD LAB BLOOD ORDERABLES Final Re sult Performing Organization Address City/[facility]/ZIP Co de Phone Number [facility] [address] [place] [phone] * TSH with Reflex to Free T4 (08/19/2024 9:41 AM EST) TSH reflex Free T4 1.87 0.32 - 4.0 uIU/mL [facility] 08/19/2024 9:41 AM EST 08/19/2024 9:41 AM EST us Generic External Data Provider LAB BLOOD ORDERAB LES Final Result Performing Organization Address [facility]/ZIP Co de Phone Number [facility] [address] [place] [phone] * (ABNORMAL) CBC auto differential (08/19/2024 9:41 AM EST) White Blood Count 4.8 4.8 - 10.8 X10*3/uL [facility] Red Blood Count 4.05(L) 4.20 - 5.50 X10*6/uL [facility] Hemoglobin 12.8 12.0 - 16.0 g/dl [facility] Hematocrit 39.4 37.0 - 47.0 % [facility] Mean Corpuscular Volume 97.3 80.0 - 98.0 fL [facility] Mean Corpuscular Hemoglobin 31.6 27.0 - 33.0 pg [facility] Mean Corpuscular HGB Conc 32.5 31.0 - 35.0 g/dl [facility] Red Cell Distribution Width 12.9 11.0 - 16.0 % [facility] Platelet Count 277 160 - 400 X10*3/uL [facility] Mean Platelet Volume 11.0 9.4 - 12.3 fL [facility] Neutrophils Percent Auto 55.0 45 - 73 % [facility] Imm Gran Pct Auto 0.2 0.0 - 0.4 % [facility] Lymphocytes Percent Auto 36.6 20 - 40 % [facility] Monocytes Percent Auto 6.7 2 - 11 % [facility] Eosinophils Percent Auto 1.3 0 - 4 % [facility] Basophils Percent Auto 0.2 0 - 2 % [facility] NRBC Pct Auto 0.0 0.0 - 0.2 /100WBC [facility] Neutrophils Absolute Auto 2.6 2.0 - 8.3 x10*3/uL [facility] Imm Gran Abs Auto 0.01 0.00 - 0.03 X10*3/uL [facility] Lymphocytes Absolute Auto 1.7 1.2 - 4.9 X10*3/uL [facility] Monocytes Absolute Auto 0.3 0.1 - 1.2 X10*3/uL [facility] Eosinophils Absolute Auto 0.1 0.0 - 0.4 X10*3/uL [facility] Basophils Absolute Auto 0.0 0.0 - 0.2 X10*3/uL [facility] NRBC Abs Auto 0.000 0.0 - 0.012 X10*3/uL [facility] 08/19/2024 9:41 AM EST 08/19/2024 9:41 AM EST us Generic External Data Provider LAB BLOOD ORDERAB LES Final Result [facility] [address] [place] [address] [phone] * (ABNORMAL) Comprehensive Metabolic Panel (08/19/2024 9:41 AM EST) Sodium 140 135 - 145 mmol/L [facility] Potassium 3.7 3.3 - 5.1 mmol/L [facility] Chloride 111(H) 96 - 108 mmol/L [facility] Carbon Dioxide 26 22 - 29 mmol/L [facility] Anion Gap 7(L) 12 - 20 [facility] Urea Nitrogen (BUN) 11 9 - 16 mg/dL [facility] Creatinine, Serum 0.87 0.5 - 1.4 mg/dL [facility] Estimated Glomerular Filt Rate >60 [facility] Comment:Chronic Kidney Disea se: Estimated GFR < 60 mL/min/1.81z8Snkxze Kidney Disease: Estimated GFR < 15 mL/min/1.73m2 Glucose 76 60 - 115 mg/dL [facility] Calcium 8.4 8.4 - 10.2 mg/dL [facility] Bilirubin, Total 0.4 0.0 - 1.0 mg/dL [facility] Aspartate Amino Transferase 27 5 - 31 U/L [facility] Alanine Aminotransferase 26 0 - 31 U/L [facility] Total Protein 7.2 6.5 - 8.0 g/dL [facility] Albumin Level 3.9 3.5 - 5.0 g/dL [facility] Alkaline Phosphatase 56 39 - 117 U/L [facility] 08/19/2024 9:41 AM EST 08/19/2024 9:41 AM EST us Generic External Data Provider LAB BLOOD ORDERAB LES Final Result [facility] [address] [place] [address] [phone] * POCT Urine (08/05/2024 10:57 AM EST) Preg Test, Ur Negative Negative, Indeterminate, None Detected, Invalid, Specimen unsatisfactory for evaluation, Weakly Positive QC Media Lot # [id number] Lot# Expiration Date 12172,025 Urine 08/05/2024 10:5 7 AM EST Marlyn [...] Media Lot # [id number] Lot# Expiration Date 312,025 Urine 08/05/2024 10:5 7 AM EST Marlyn De La O MD POINT OF CARE TEST ENTER/EDIT ORDERABLES Final Result * Culture, Urine, Routine (08/05/2024 12:00 AM EST) Urine Urine specimen obtained by clean catch procedure / Unknown 08/05/2024 08/05/2024 Comment:UACC Narrative [facility] - 08/08/2024 8:23 AM EST [...] MICROBIOLOGY - GENERAL OR DERABLES Final Result [facility] [address] [place] [address] [phone] * US Abdomen Complete (08/01/2024 9:21 AM EST) Anatomical Region Laterality Modality Abdomen Ultrasound 08/01/2024 9:21 AM EST Narrative 08/05/2024 5:19 AM EST ? [facility] ?[address] ?[place] [address] ? Ultrasound Report ? Signed ? Patient: Serenity Carranza ?MR# ?? : [id number] ? : 1995 ?Acct:[id number] ? Age/Sex: 28 / F ?ADM Date: 08/01/24 ? Loc: HO.US ? Attending Dr: Yue JOHNSON ? Ordering Physician: Yue Kennedy ?? Date of Service: 08/01/24 ?? Procedure(s): US abdomen complete ?? Accession Number(s): [id number] ? cc: Yue Kennedy; Marlyn De La [...] by Yudy Denny MD in OV> ? 08/05/24 0516 ? DD/ ? TD/TT: 08/01/2434 ? Director Targeted Marketing: ? Procedure Note Zara Arnold - 08/05/2024 [place] [address] Ultrasound Report Signed Patient: Serenity Carranza RMR# : [id number] : 1995Acct:[id number] Age/Sex: 28 / FADM Date: 08/01/24 Loc: HO.US Attending Dr: Yue JOHNSON Ordering Physician: Yue Kennedy Date of Service: 08/01/24 Procedure(s): US abdomen complete Accession Number(s): [id number] cc: Yue Kennedy; Marlyn De La O [...] signed by Yudy Denny MD in OV> 08/05/24 0516 DD/ 0 TD/TT: 08/01/24933 Director Targeted Marketing: [facility] External Provider IMG US PROCEDURES Final Result * Helicobacter pylori, Urea Breath Test (07/09/2024 12:18 PM EST) H. pylori Breath Test Negative Negative [facility] Comment:Antimicrobials, prot on pump inhibitors and bismuthpreparations are known to suppress H. pylori. Ingestingthese medications within two weeks prior to performing thebreath test may produce negative test results. A positiveresult is still clinically valid. 07/09/2024 12:1 8 PM EST 07/09/2024 1:35 PM EST Generic External Data Provider LAB BLOOD ORDERAB LES Final Result [facility] [address] [place] [phone] * Hepatitis C Antibody with Reflex to HCV, RNA, Quantitative, Real-Time PCR (04/12/2024 1:25 PM EDT) Hepatitis C Antibody Nonreactive Nonreactive [facility] Comment:Antibodies to HCV no t detected; does not exclude early acuteHCV infection. Blood Venous blood specimen / Unknown 04/12/2024 1:25 PM EDT 04/12/2024 2:11 PM EDT Marlyn De La O MD LAB BLOOD ORDERABLES Final Re sult Performing Organization Address [facility]/ZIP Co de Phone Number [facility] [address] [place] [address] [phone] * HIV-1/2 Antigen and Antibodies, Fourth Generation, with Reflexes (04/12/2024 1:25 PM EDT) [facility] HIV AB/AG Nonreactive Nonreactive [facility] Comment:HIV-1 p24 Ag and/or HIV-1/HIV-2 Ab not detected.A test result that is nonreactive does not exclude thepossibility of exposure to or infection with HIV-1 and/orHIV-2. Nonreactive results in this assay for individualswith prior exposure to HIV-1 and/or HIV-2 may be due toantigen and antibody levels that are below the limit ofdetection of this assay.The C4M HIV Ag/Ab Combo assay result andsupplemental assay results should be interpreted inconjunction with the patient's clinical presentation,history and other laboratory results. If the results areinconsistent with clinical evidence, additional testing issuggested to confirm the result. Blood Venous blood specimen / Unknown 04/12/2024 1:25 PM EDT 04/12/2024 2:11 PM EDT Marlyn De La O MD LAB BLOOD ORDERABLES Final Re sult Performing Organization Address [facility]/ZIP Co de Phone Number [facility] [address] [place] [address] [phone] * Pap Smear (12/22/2023 9:40 AM EDT) Swab Cervical swab / Unknown 12/22/2023 9:40 AM EDT 12/25/2023 5:00 AM EDT Narrative [facility] - 01/08/2024 5:16 PM EDT ----- ------- Name: Serenity Carranza ? Age/Sex: 28/F ? : 1995 Unit#: [id number] ?? Attend Dr: Juani Keith MD ?Re12/22/23 ?Status: DEP REF ? [facility] ? Disch: ? ----- ------- SPEC : [id number] ?RECD: 12/25/23 ? STATUS: ??SOUT ? REQ NUM: [id number] ? DAYNA: 12/22/23-939 ? SUBM DR: Juani Keith MD ? ENTERED: ??12/25/23-901 ?SP TYPE: Pap Smr ?OTHR DR: ? ORDERED: ??Pap Smear ? Interpretation ?? Satisfactory for evaluation. ?? Negative for intraepithelial lesion or malignancy. ?? Fungal organisms consistent with Shana species. ?Clinical Information LMP: 12/11/2023 Previous PAP test: First pap ? Material Received ?? ThinPrep-Cervical ----- ------- Signed (signature on file) Reema Sue Marybeth 01/08/241715 ? ----- ------- ? END OF REPORT ? us Juani Keith MD LAB CYTOLOGY ORDERABLES Final Result [facility] [address] [place] [address] [phone] from Last 3 Months or Most Recently Relevant to Health Maintenance Insurance HSN PARTIAL [facility]LY [facility] Care Teams Reverberatory Furnace Operator Relationship Specialty Start Date End Date Marlyn De La O MD [address] [place] [phone] PCP - General Family Medicine 03/14/24
--- OUTSIDE RECORDS SUMMARY | 2024-09-24 16:27 | XMS_ITS | Encounter Summary ---
Author Organization [employer] Address [address] [place] [address] 7 [place] [address] Care Team Providers Care Circus Artist Name Role Phone Marlyn De La O MD Primary Care Provider [phone] Reason for Visit * Reason Onset Date Comments Med Refill 05/22/2024 Encounter Details Date Type Department Care Team ([facility] st Contact Info) Description 05/22/2024 Refill [facility] MED & PEDS [address] [place] [address] Marlyn De La O MD [address] [place] [address] Social History Tobacco Use Types Packs/Day Years [...] documented as of this encounter Care Teams Circus Artist Relationship Specialty Start Date End Date Marlyn De La O MD [address] [place] [phone] PCP - General Family Medicine 03/14/24 documented as of this encounter
--- OUTSIDE RECORDS SUMMARY | 2024-09-24 16:27 | XMS_ITS | Encounter Summary ---
Author Organization [employer] Address [address] [facility] 7 [place] [address] Care Team Providers Care Swimming Pool Attendant Name Role Phone Marlyn De La O MD Primary Care Provider [phone] Encounter Details Date Type Department Care Team ([facility] Contact Info) Description 09/24/2024 Telephone C [facility] MED [facility] PEDS [address] [place], [place] [phone] Marlyn De La O MD [address] [place] [address] Social History Tobacco Use Types Packs/Day Years [...] encounter Miscellaneous Notes * Telephone Encounter - Lucinda Friedman RN - 09/24/2024 10:50 AM EST TC to patient. Patient preferred to get blood lab Hcg test for confirmation. documented in this encounter Plan of Treatment Not on file documented as of this encounter Procedures Procedure Name Priority Date/Time Associated Diagnosis Comments HCG, TOTAL, QN Routine 09/24/2024 1:11 PM EST Encounter for test, result unknown documented in this encounter Results * hCG, Total, Quantitative (09/24/2024 1:11 PM EST) HCG Quantitative 6,866 mIU/mL [facility] Comment:Weeks post LMP Appro ximate hCG(Last Menstrual Period) Range (mIU/ml)3 - 4 weeks 9 - 1304 - 5 weeks 75 - 2,6005 - 6 weeks 850 - 20,8006 - 7 weeks 4000 - 100,2007 - 12 weeks 11,500 - 289,27737 - 16 weeks 18,300 - 137,30774 - 29 weeks (2nd trimester) 1,400 - 53,74705 - 41 weeks (3rd trimester) 940 - [...] MD LAB BLOOD ORDERABLES Final Re sult [facility] [address] [place] [address] [phone] documented in this encounter Visit Diagnoses Diagnosis Encounter for test, result unknown documented in this encounter Additional Health Concerns Assessment Noted Time PHQ-9 Depression Total Score: 2 08/05/19 25 10:46 AM EST documented as of this encounter Care Teams Swimming Pool Attendant Relationship Specialty Start Date End Date Marlyn De La O MD [address] [place] [phone] PCP - General Family Medicine 03/14/24 documented as of this encounter
--- OUTSIDE RECORDS SUMMARY | 2024-09-24 16:27 | XMS_ITS | Encounter Summary ---
Author Organization [employer] Address [address] [facility] 7 [place] [address] Care Team Providers Care Office Assistant Receptionist Name Role Phone Jeff Gomez MD Primary Care Prov ider Marlyn De La O MD Primary Care Provider [phone] Reason for Visit * Reason Onset Date Comments Results 09/28/2023 Encounter Details Date Type Department Care Team ([facility] st Contact Info) Description 09/28/2023 Telephone [facility] MEDICINE [address] [place] [address] Mary Franks FNP Results Social History Tobacco [...] AM EST Tc to patient via PI #[id number] regarding message below. Pt wants to know [...] Urine culture Date when done: 07/19 Facility: [facility] walk in Please contact pt at [phone] (Japanese) documented in this encounter Plan of Treatment Not on file documented as of this encounter Visit Diagnoses Not on filedocumented in this encounter Care Teams Office Assistant Receptionist Relationship Specialty Start Date End Date Jeff Gomez MD [address] [place] [phone] PCP - General Internal Medicine 11/25/23 03/13/24 Marlyn De La O MD [address] [place] [phone] PCP - General Family Medicine 03/14/24 documented as of this encounter
--- OUTSIDE RECORDS SUMMARY | 2024-09-24 16:27 | XMS_ITS | Encounter Summary ---
Author Organization [employer] Address [address] [place] [address] Care Team Providers Care Materials Manager Name Role Phone Jeff Gomez MD Primary Care Prov ider Marlyn De La O MD Primary Care Provider [phone] Reason for Visit * Reason Onset Date Comments Med Refill 12/24/2023 Encounter Details Date Type Department Care Team ([facility] st Contact Info) Description 12/24/2023 Telephone [facility] CH[facility] MED & PEDS [address] [place], [place] [phone] Jeff Gomez MD [address] [place] [address] Med Refill Social History Tobacco Use Types [...] 10:47 AM EDT Tc to pt using [employer] [place], [place] [id number]. Pt reports having taken medications and just [...] 9:18 AM EDT Tc to pt using [employer] [place], [place] [id number]. Unable to reach pt, rehab physician left message for pt to call back. * Telephone Encounter - Wing Nathan RN - 12/26/2023 12:11 PM EDT Please advise, tc to pt using [employer] Human Resource Management Instructor [place], [place] [id number]. Explained BV and candidas. Pt would prefer [...] on filedocumented in this encounter Care Teams Materials Manager Relationship Specialty Start Date End Date Jeff Gomez MD [address] [place] [phone] PCP - General Internal Medicine 11/25/23 03/13/24 Marlyn De La O MD [address] [place] [address] PCP - General Family Medicine 03/14/24 documented as of this encounter
--- OUTSIDE RECORDS SUMMARY | 2024-09-24 16:28 | XMS_ITS | Encounter Summary ---
Author Organization [employer] Address [address] [place] [address] 7 [place] [address] Care Team Providers Care Bridge Club Manager Name Role Phone Marlyn De La O MD Primary Care Provider [phone] Reason for Visit * Reason Onset Date Comments traige 09/23/2024 Encounter Details Date Type Department Care Team ([facility] st Contact Info) Description 09/23/2024 Telephone [facility] CHC MED & PEDS [address] [place] [address] Marlyn De La O MD [address] [place] [address] enrique Social History Tobacco Use Types Packs/Day Years [...] encounter Miscellaneous Notes * Telephone Encounter - Jeanne Harris RN - 09/23/2024 1:22 PM EST No roll panner needed as 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 Call returned to Serenity GEIGER to triage below. Reports having positive HPT 3 days ago. Per pt unsure of LMP. States believes is dlflti70 days late. Per pt having lower pelvic cramping, nausea and breast tenderness. Pt has been takingprenatal vitamins. No vaginal bleeding or spotting. Pt wants to confirm test in office. Gi deisy nurse visit tomorrow as patient not available in the morning due to work schedule. Reviewed home care advise, ER precautions and reasons to call back. Protocol Used: Menstrual Period - Missed or Late (Adult) Protocol-Based Disposition: See in Office or Video Visit within 3 Days Future Appointments Date Time Provider Department Center 09/24/2024 2:45 PM [facility] N[facility]SE [facility] Positive Triage Question: * Wants a test done in the office * All higher-acuity triage questions were negative Care Advice Discussed: * Reasons To Call Back - Miss 2 periods or more - New symptoms suggest (such as morning sickness, breast tenderness/swelling) - You have any other serious symptoms * Telephone Encounter - Maxine Moore - 09/23/2024 1:18 PM EST Pt states took test 3 days ago and results was positive, requesting lab order or f/u w/ md. Pls call pt documented in this encounter Plan of Treatment Not on file documented as of this encounter Visit Diagnoses Not on filedocumented in this encounter Additional Health Concerns Assessment Noted Time PHQ-9 Depression Total Score: 2 08/05/19 25 10:46 AM EST documented as of this encounter Care Teams Bridge Club Manager Relationship Specialty Start Date End Date Marlyn De La O MD [address] [place] [address] PCP - General Family Medicine 03/14/24 documented as of this encounter
--- OUTSIDE RECORDS SUMMARY | 2024-09-24 16:28 | XMS_ITS | Encounter Summary ---
Author Organization [employer] Address [address] [place] [address] 7 [place] [address] Care Team Providers Care Chemical Laboratory Tester Name Role Phone Marlyn De La O MD Primary Care Provider [phone] Reason for Visit * Reason Onset Date Comments Med Refill 07/01/2024 Encounter Details Date Type Department Care Team ([facility] st Contact Info) Description 07/01/2024 Refill [facility] PEDS [address] [place] [address] Marlyn De La O MD [address] [place] [address] Social History Tobacco Use Types Packs/Day Years [...] documented as of this encounter Care Teams Chemical Laboratory Tester Relationship Specialty Start Date End Date Marlyn De La O MD [address] [place] [id number] PCP - General Family Medicine 03/14/24 documented as of this encounter
--- OUTSIDE RECORDS SUMMARY | 2024-09-24 16:28 | XMS_ITS | Encounter Summary ---
Author Organization [employer] [facility] Address [address] [place] [address] Care Team Providers Care Curtain Mender Name Role Phone Jeff Gomez MD Primary Care Prov ider Marlyn De La O MD Primary Care Provider [phone] Encounter Details Date Type Department Care Team (Late st Contact Info) Description 12/26/2023 Orders Only [facility] MEDICINE [address] [place] [address] Claribel Soliman MD [address] [place] [address] Bacterial vaginosis (Primary Dx) Social History Tobacco [...] vulvovaginitis documented in this encounter Care Teams Curtain Mender Relationship Specialty Start Date End Date Jeff Gomez MD [address] [place] [address] PCP - General Internal Medicine 11/25/23 03/13/24 Marlyn De La O MD [address] [place] [address] PCP - General Family Medicine 03/14/24 documented as of this encounter
--- OUTSIDE RECORDS SUMMARY | 2024-09-24 16:28 | XMS_ITS | Encounter Summary ---
Author Organization [employer] Address [address] [place] [address] 7 [place] [address] Care Team Providers Care Medical Facilities Section Director Name Role Phone Marlyn De La O MD Primary Care Provider [phone] Reason for Visit * Reason Onset Date Comments Med Refill 05/20/2024 Encounter Details Date Type Department Care Team ([facility] st Contact Info) Description 05/20/2024 Refill [facility] MED & PEDS [address] [place] [address] Marlyn De La O MD [address] [place] [address] Social History Tobacco Use Types Packs/Day Years [...] documented as of this encounter Care Teams Medical Facilities Section Director Relationship Specialty Start Date End Date Marlyn De La O MD [address] [place] [id number] PCP - General Family Medicine 03/14/24 documented as of this encounter
== END 2024-09-24 13:11 | disposition home or self-care (01) ==
LOC: HO.CHCLDS 13:10
PROVIDERS: Visit Provider Family Medicine
DX: Z32.00 Encounter for pregnancy test, result unknown (principal)
CPT/HCPCS: 36415; 84702

== ENCOUNTER 2024-10-30 10:58 | Outpatient (AMB) | payer OTHER, SELFPAY ==
--- NOTE | 2024-10-30 11:19 | MHC.OFFVIS ---
Vital Signs 10/30/24 11:26 Height 5 ft 6 in Weight 162 lb 11.218 oz BMI 26.3 BP 118/75 Blood Pressure Location Lt brachial Position Sitting Pulse 94 Intake Visit Reasons: 6 week follow up CIC R/S from 08/27/24 Intake Note: Serenity presents in office today in follow up of CIC. CC: Patient c/o stomach pain, and constipation. She states that she is about 3 months . Denies other GI symptoms today. Pan Helper Required: Yes Accompanied by: Self / Same As Patient Allergies No Known Allergies [No Known Allergies*] Allergy (Verified 10/30/24 11:32) HPI HPI 6 week follow up CIC R/S from 08/27/24: Details: Assessment & Plan (1) GERD (gastroesophageal reflux disease): Code(s): K21.9 - Gastro-esophageal reflux disease without esophagitis Category: Medical (2) H. pylori infection: Comment: Treated in the [place] with Levaquin/amoxicillin Code(s): A04.8 - Other specified bacterial intestinal infections Category: Medical (3) Chronic idiopathic constipation: Code(s): K59.04 - Chronic idiopathic constipation Category: Medical (4) Nausea and vomiting: Code(s): R11.2 - Nausea with vomiting, unspecified Category: Medical (5) Upper abdominal pain: Code(s): R10.10 - Upper abdominal pain, unspecified Category: Medical Plan Tunisian #[id number], [id number] She was recently tx'd for H pylori w/o improvement, the only medication she is taking is Levosupliride which is a reglan type medication not approved for use in the [place] (rx'ed in ). She has had this problem for 3-4 years with a lot of GERD and HB and pain in the stomach with nausea. The pain is in the epigastric area. She has the pain both when the stomach is empty and when she eats, and she has the most nausea in the AM. She vomits occasionally r/t the pain. The pain is quite intense and at times 10/10 and causes her to be light headed with tingeling in her hands. The pain is worst around 2-4 oclock during the day and her largest meal is at lunch. She suffers CIC that started about a year ago. She will only move her bowels 1-2 x a week. She has not tried any laxatives. She has only tried famotidine and ranitidine. Her diet is mostly meats and rice. She drinks only water. All of this is leaving her with a bad taste in her throat. She has a globus sensation. She was tx'ed with levaquin and amox. Both her mother and father have stomach problems and her mother had PUD so severe she vomited blood. She would like to get , but she states she is now on BC and there is no chance that she is . ROV 6 weeks. Orders: Orders US abdomen complete Today R10.10 - Upper abdominal pain, unspecified TSH reflex Free T4 Today R10.10 - Upper abdominal pain, unspecified H Pylori Breath Test Today A04.8 - Other specified bacterial intestinal infections, R10.10 - Upper abdominal pain, unspecified EGD - GI Use Only Today R10.10 - Upper abdominal pain, unspecified Comprehensive Met. Panel Today R10.10 - Upper abdominal pain, unspecified, R11.2 - Nausea with vomiting, unspecified Complete Blood Count Auto Diff Today R10.10 - Upper abdominal pain, unspecified, R11.2 - Nausea with vomiting, unspecified Medications: New sennosides (Senna Laxative) 17.2 mg (2 x 8.6 mg) PO BEDTIME 60 tabs 6RF K59.04 - Chronic idiopathic constipation pantoprazole (Protonix) 40 mg PO BID 60 tabs 6RF 30 days LABS: Laboratory Tests 08/19/24 09/24/24 09:41 13:11 WBC 4.8 Hgb 12.8 Hct 39.4 Plt Count 277 Estimated GFR > 60 Total Bilirubin 0.4 AST 27 ALT 26 Alkaline Phosphatase 56 TSH 1.87 Beta HCG, Quant [id number] Laboratory Tests 07/09/24 12:18 H. pylori Breath Test Negative ULTRASOUND OF THE ABDOMEN 08/05/2024 FINDINGS: PANCREAS: Limited visualization of pancreatic tail and head. Imaged portion of pancreatic body is unremarkable. ABDOMINAL AORTA: The proximal, mid, and distal segments are normal in caliber. INFERIOR VENA CAVA: Visualized portions are normal. LIVER: The liver is normal in size. The liver contour is normal. Parenchymal echogenicity is normal. Limited visualization GALLBLADDER: Gallstones. No gallbladder wall thickening COMMON BILE DUCT: Normal in caliber measuring 0.3 cm in diameter. RIGHT KIDNEY: No hydronephrosis. No renal calculi. Limited visualization. The kidney measures 11.5 cm in maximum dimension. LEFT KIDNEY: No hydronephrosis. No renal calculi. Limited visualization. The kidney measures 10.4 cm in maximum dimension. SPLEEN: The spleen measures 9.4 cm in maximum dimension. FREE FLUID: None. US/US abdomen complete IMPRESSION: Unremarkable exam. EGD BIOPSY TODAY'S VISIT Tunisian #Tunisian #[id number], Mandeep She is !! She is due 05/25. She continues to have upper abd pain, but no N/V. Still can not move her bowels but the senna did not work at all. Will start famotidine 40mg bid instead of pantorapzole and bisacosyl bid as these are both deemed safe to be used in . Clearly we will have to hold off on the EGD until after she gives . ROV next avail. [facility] Surgical History History of esophagogastroduodenoscopy (EGD) H/O breast biopsy Family History Maternal Grandmother Breast cancer Paternal Grandmother Cancer of unknown origin Social History Alcohol intake: never Patient Tobacco Use Status: Never used Tobacco Female Reproductive History Menstrual Age of Menarche: 13 Review of Systems Const Denies fatigue, Denies fever(s), Denies night sweats, Denies poor appetite and Denies weight loss ENT Reports Normal hearing present, Denies dental pain, Denies dysphagia, Denies hearing loss, Denies mouth pain, Denies odynophagia, Denies throat swelling, Denies tongue swelling and Reports other (Dentition adequate) Card Reports no additional complaints Resp Reports no additional complaints GI Details: Reports abdominal pain, Denies melena, Denies bloating, Denies hematochezia, Reports constipation, Denies GI cramping, Denies dysphagia, Denies excessive flatus, Denies early satiety, Denies heartburn, Denies diarrhea, Denies nausea, Denies odynophagia, Denies vomiting and Denies hematemesis Skin/Breast Denies pruritus, Denies lesions, Denies rash and Denies jaundice Neuro Reports Normal hearing present and Denies Abnormal speech present Endo Denies fatigue Aller/Immun Denies throat swelling and Denies tongue swelling Physical Exam Vital Signs: Last Vital Signs Pulse 94 10/30/24 11:26 BP 118/75 10/30/24 11:26 BMI result Body Mass Index 26.3 Const General: cooperative, no acute distress, well developed and well groomed Nutritional Appearance: average body habitus and well nourished Orientation/consciousness: oriented to person, oriented to place and oriented to time Limitations: language barrier HEENT Head: Yes normocephalic and Yes atraumatic Eyes General: appearance normal, both eyes and all related structures Pupils: Equal, round and reactive pupils present Neck Neck: Yes normal visual inspection and Yes no lymphadenopathy Thyroid: Thyroid normal Resp Effort & Inspection: normal respiratory effort and able to speak in complete sentences Auscultation: clear to auscultation bilaterally Cardio Rate: regular rate Rhythm: regular rhythm Heart sounds: Normal, physiologic split S2 sound present Peripheral pulses: radial pulses present and posterior tibial pulses present GI Inspection: No distended and No Abdominal panniculus present Palpation (GI): Soft to palpation, nontender, no guarding, not rigid and No hepatosplenomegaly present Percussion: Yes normal to percussion Auscultation: normal bowel sounds Rectal Exam - Female: deferred Skin General skin exam: no rashes or lesions noted, turgor normal, skin not dry, no jaundice, No spider nevi and no striae Rashes: no rashes Nails: normal Neuro General: oriented to person, oriented to place and oriented to time Cranial nerves: Yes Equal, round and reactive pupils present and Yes Normal hearing present Speech: No Abnormal speech present Extrem General: Yes normal to inspection, No clubbing, No cyanosis and No edema Psych Appearance: grossly normal and well kempt Mental Status: mental status grossly normal Speech and movement: Normal speech and movement present Affect: normal affect Attitude: cooperative Thought process: Normal thought process present and not confabulating Thought content: Normal thought content present Insight: Limited insight present (Psych) Judgement: Limited judgement present (Psych) Assessment & Plan Assessment & Plan (1) Chronic idiopathic constipation: Code(s): K59.04 - Chronic idiopathic constipation Category: Medical (2) Nausea and vomiting: Code(s): R11.2 - Nausea with vomiting, unspecified Category: Medical (3) GERD (gastroesophageal reflux disease): Code(s): K21.9 - Gastro-esophageal reflux disease without esophagitis Category: Medical (4) H. pylori infection: Comment: Treated in the [place] with Levaquin/amoxicillin Code(s): A04.8 - Other specified bacterial intestinal infections Category: Medical (5) Upper abdominal pain: Code(s): R10.10 - Upper abdominal pain, unspecified Category: Medical Plan [place]ian #Tunisian #[id number] Mandeep She is !! She is due 05/25. She continues to have upper abd pain, but no N/V. Still can not move her bowels but the senna did not work at all. Will start famotidine 40mg bid instead of pantorapzole and bisacosyl bid as these are both deemed safe to be used in . Clearly we will have to hold off on the EGD until after she gives . ROV next avail. Medications: New famotidine (Pepcid) 40 mg PO BID 60 tabs 11RF R10.10 - Upper abdominal pain, unspecified bisacodyl (Dulcolax (bisacodyl)) 10 mg (2 x 5 mg) PO BEDTIME 60 tabs 11RF 30 days K59.04 - Chronic idiopathic constipation, R10.10 - Upper abdominal pain, unspecified Discontinued sennosides (Senna Laxative) Discontinued Reason: Doctor's Order 17.2 mg (2 x 8.6 mg) PO BEDTIME 60 tabs 6RF K59.04 - Chronic idiopathic constipation pantoprazole (Protonix) Discontinued Reason: Doctor's Order 40 mg PO BID 30 days 60 tabs 6RF Coding Level of Care Code Est Pt Level 3 (60055) Diagnoses Chronic idiopathic constipation K59.04 Nausea and vomiting R11.2 GERD (gastroesophageal reflux disease) K21.9 H. pylori infection A04.8 Upper abdominal pain R10.10
[2024-10-30 11:26] VITALS: BP 118/75; PULSE 94; BMI 26.3
--- OUTSIDE RECORDS SUMMARY | 2024-10-30 12:56 | XMS_ITS | Encounter Summary ---
Author Organization [employer] [facility] Address [address] [place] [address] Care Team Providers Care Seafood Clerk Name Role Phone Jeff Gomez MD Primary Care Prov ider Marlyn De La O MD Primary Care Provider [phone] Encounter Details Date Type Department Care Team (Late st Contact Info) Description 12/26/2023 Orders Only [facility] MEDICINE [address] [place] [address] Claribel Soliman MD [address] [place] [address] Bacterial vaginosis (Primary Dx) Social History Tobacco [...] vulvovaginitis documented in this encounter Care Teams Seafood Clerk Relationship Specialty Start Date End Date Jeff Gomez MD [address] [place] [address] PCP - General Internal Medicine 11/25/23 03/13/24 Marlyn De La O MD [address] [place] [address] PCP - General Family Medicine 03/14/24 documented as of this encounter
--- OUTSIDE RECORDS SUMMARY | 2024-10-30 12:56 | XMS_ITS | Clinical Summary ---
Author Organization [employer] Address [address] [place] [address] 7t [place] [address] Care Team Providers Care Box Printer Name Role Phone Marlyn De La O MD Primary Care Provider [phone] Allergies No known active allergies Medications senna [...] Encounters Date Type Department Care Team Description 10/21/2024 Telephone [facility] [address] [place] [address] Liz Potter, RN [facility] notes for OV appt 09/30/2024 Telephone [facility] [address] [place] [address] Marlyn De La O MD Referral 09/30/2024 Telephone [facility] [address] [place] [address] Marlyn De La O MD Nurse Triage 09/27/2024 Orders Only [facility] [address] [place] [address] [facility], [facility] , unspecified gestational age (Primary Dx) 09/24/2024 Telephone [facility] [address] [place] [address] Marlyn De La O MD Results 09/23/2024 Telephone [facility] [address] [place] [address] Marlyn De La O MD traige 08/19/2024 Orders Only GENERIC EXTERNAL DATA DEPARTMENT Provider, Generic External Data 08/05/2024 10:30 AM EST Office Visit [facility] [address] [place] [address] Marlyn De La O MD Dysuria (Primary Dx) 08/05/2024 Travel 08/02/2024 Telephone [facility] [address] [place] [address] Marlyn De La O MD CHART PREP from Last 3 Months Immunizations Name Administration [...] Last Done Comments Family Planning (PISQ) 2012 Hepatitis B Vaccines (1 of 3 [...] on patient's age to complete this topic HPV Vaccines Aged Out No longer eligi ble [...] COMPLETE Routine 08/01/2024 9 :21 AM EST HEPATITIS C AB W/REFL TO HCV [...] 1:11 PM EST) HCG Quantitative 6,866 mIU/mL [facility] Comment:Weeks post LMP Appro ximate hCG(Last Menstrual Period) Range (mIU/ml)3 - 4 weeks 9 - 1304 - 5 weeks 75 - 2,6005 - 6 weeks 850 - 20,8006 - 7 weeks 4000 - 100,2007 - 12 weeks 11,500 - 289,76167 - 16 weeks 18,300 - 137,26773 - 29 weeks (2nd trimester) 1,400 - 53,26223 - 41 weeks (3rd trimester) 940 - [...] MD LAB BLOOD ORDERABLES Final Re sult [facility] [address] [place] [phone] * T-SPOT??.TB (08/19/2024 9:41 AM EST) T Spot TB Negative Negative [facility] Comment:A negative test resu lt [...] as aquantitative test. TS PANEL A 0 [facility] TS PANEL B 0 [facility] Negative Control Passed [facility] Positive Control Passed [facility] Comment:For additional infor mation, please refer tohttp://education.Double Fusion/faq/SFV167(This link is being provided for informational/educational purposes only.)THIS TEST WAS PERFORMED AT:[employer] [id number] [place] [address]ZSJHIOKKAELYN WHITTAKER MD,PHD 08/19/2024 9:41 AM EST 08/19/2024 9:41 AM EST us Marlyn De La O MD LAB BLOOD ORDERABLES Final Re sult Performing Organization Address [facility]/ZIP Co de Phone Number [facility] [address] [place] [phone] * TSH with Reflex to Free T4 (08/19/2024 9:41 AM EST) TSH reflex Free T4 1.87 0.32 - 4.0 uIU/mL [facility] 08/19/2024 9:41 AM EST 08/19/2024 9:41 AM EST us Generic External Data Provider LAB BLOOD ORDERAB LES Final Result Performing Organization Address [facility] Co de Phone Number [facility] [address] [place] [address] [phone] * (ABNORMAL) CBC auto differential (08/19/2024 9:41 AM EST) White Blood Count 4.8 4.8 - 10.8 X10*3/uL [facility] Red Blood Count 4.05(L) 4.20 - 5.50 X10*6/uL [facility] Hemoglobin 12.8 12.0 - 16.0 g/dl [facility] Hematocrit 39.4 37.0 - 47.0 % [facility] Mean Corpuscular Volume 97.3 80.0 - 98.0 fL [facility] Mean Corpuscular Hemoglobin 31.6 27.0 - 33.0 pg [facility] Mean Corpuscular HGB Conc 32.5 31.0 - 35.0 g/dl [facility] Red Cell Distribution Width 12.9 11.0 - 16.0 % [facility] Platelet Count 277 160 - 400 X10*3/uL [facility] Mean Platelet Volume 11.0 9.4 - 12.3 fL [facility] Neutrophils Percent Auto 55.0 45 - 73 % [facility] Imm Gran Pct Auto 0.2 0.0 - 0.4 % [facility] Lymphocytes Percent Auto 36.6 20 - 40 % [facility] Monocytes Percent Auto 6.7 2 - 11 % [facility] Eosinophils Percent Auto 1.3 0 - 4 % [facility] Basophils Percent Auto 0.2 0 - 2 % [facility] NRBC Pct Auto 0.0 0.0 - 0.2 /100WBC [facility] Neutrophils Absolute Auto 2.6 2.0 - 8.3 x10*3/uL [facility] Imm Gran Abs Auto 0.01 0.00 - 0.03 X10*3/uL [facility] Lymphocytes Absolute Auto 1.7 1.2 - 4.9 X10*3/uL [facility] Monocytes Absolute Auto 0.3 0.1 - 1.2 X10*3/uL [facility] Eosinophils Absolute Auto 0.1 0.0 - 0.4 X10*3/uL [facility] Basophils Absolute Auto 0.0 0.0 - 0.2 X10*3/uL [facility] NRBC Abs Auto 0.000 0.0 - 0.012 X10*3/uL [facility] 08/19/2024 9:41 AM EST 08/19/2024 9:41 AM EST us Generic External Data Provider LAB BLOOD ORDERAB LES Final Result [facility] [address] [place] [address] [phone] * (ABNORMAL) Comprehensive Metabolic Panel (08/19/2024 9:41 AM EST) Sodium 140 135 - 145 mmol/L [facility] Potassium 3.7 3.3 - 5.1 mmol/L [facility] Chloride 111(H) 96 - 108 mmol/L [facility] Carbon Dioxide 26 22 - 29 mmol/L [facility] Anion Gap 7(L) 12 - 20 [facility] Urea Nitrogen (BUN) 11 9 - 16 mg/dL [facility] Creatinine, Serum 0.87 0.5 - 1.4 mg/dL [facility] Estimated Glomerular Filt Rate >60 [facility] Comment:Chronic Kidney Disea se: Estimated GFR < 60 mL/min/1.89t0Dfpcvx Kidney Disease: Estimated GFR < 15 mL/min/1.73m2 Glucose 76 60 - 115 mg/dL [facility] Calcium 8.4 8.4 - 10.2 mg/dL [facility] Bilirubin, Total 0.4 0.0 - 1.0 mg/dL [facility] Aspartate Amino Transferase 27 5 - 31 U/L [facility] Alanine Aminotransferase 26 0 - 31 U/L [facility] Total Protein 7.2 6.5 - 8.0 g/dL [facility] Albumin Level 3.9 3.5 - 5.0 g/dL [facility] Alkaline Phosphatase 56 39 - 117 U/L [facility] 08/19/2024 9:41 AM EST 08/19/2024 9:41 AM EST Generic External Data Provider LAB BLOOD ORDERAB LES Final Result [facility] [address] [place] [phone] * POCT Urine (08/05/2024 10:57 AM EST) Preg Test, Ur Negative Negative, Indeterminate, None Detected, Invalid, Specimen unsatisfactory for evaluation, Weakly Positive QC Media Lot # [id number] Lot# Expiration Date Urine 08/05/2024 10:5 7 AM EST Result [facility] Marlyn De La O MD POINT OF [...] procedure / Unknown 08/05/2024 08/05/2024 Comment:UACC Narrative [facility] - 08/08/2024 8:23 AM EST [...] MICROBIOLOGY - GENERAL OR DERABLES Final Result [facility] [address] [place] [phone] * US Abdomen Complete (08/01/2024 9:21 AM EST) Anatomical Region Laterality Modality Abdomen Ultrasound 08/01/2024 9:21 AM EST Narrative 08/05/2024 5:19 AM EST ? [facility] ?[address] [place] [address] [address] [address] ? Ultrasound Report ? Signed ? Patient: Serenity Carranza ?MR# ?? : [id number] ? : 1995 ?Acct:[id number] ? Age/Sex: 28 / F ?ADM Date: 08/01/24 ? Loc: HO.US ? Attending Dr: Yue Kennedy ANP-C ? Ordering Physician: Yue Kennedy ANP-C ?? Date of Service: 08/01/24 ?? Procedure(s): US abdomen complete ?? Accession Number(s): [id number] ? cc: Yue Kennedy ANP-C; Marlyn De La O MD ? EXAMINATION: [...] in OV> ? 08/05/24 0516 ? DD/ 0 ? TD/TT: 08/01/2434 ? General Operations Agent: ? Procedure Note [place], Image - 08/05/2024 [place] [address] Ultrasound Report Signed Patient: Serenity Carranza RMR# : [id number] : 1995Acct:[id number] Age/Sex: 28 / FADM Date: 08/01/24 Loc: HO.US Attending Dr: Yue JOHNSON Ordering Physician: Yue Kennedy Date of Service: 08/01/24 Procedure(s): US abdomen complete Accession Number(s): [id number] cc: Yue Kennedy; Marlyn De La O [...] by: Yudy Denny MD 08/05/2024 05:[address] [facility] Dictated By: Yudy Denny MD Signed By: <Electronically signed by Yudy Denny MD in OV> 08/05/24 0516 DD/ 0921 TD/TT: 08/01/24 0934 General Operations Agent: [facility] External Provider IMG US PROCEDURES Final Result * Hepatitis C Antibody with Reflex to HCV, RNA, Quantitative, Real-Time PCR (04/12/2024 1:25 PM EDT) Hepatitis C Antibody Nonreactive Nonreactive [facility] Comment:Antibodies to HCV no t detected; does not exclude early acuteHCV infection. Blood Venous blood specimen / Unknown 04/12/2024 1:25 PM EDT 04/12/2024 2:11 PM EDT Result [facility] Marlyn De La O MD LAB BLOOD ORDERABLES Final Re sult [facility] [address] [place] [phone] * HIV-1/2 Antigen and Antibodies, Fourth Generation, with Reflexes (04/12/2024 1:25 PM EDT) HIV AB/AG Nonreactive Nonreactive [facility] Comment:HIV-1 p24 Ag and/or HIV-1/HIV-2 Ab not detected.A test result that is nonreactive does not exclude thepossibility of exposure to or infection with HIV-1 and/orHIV-2. Nonreactive results in this assay for individualswith prior exposure to HIV-1 and/or HIV-2 may be due toantigen and antibody levels that are below the limit ofdetection of this assay.The Veoh HIV Ag/Ab Combo assay result andsupplemental assay results should be interpreted inconjunction with the patient's clinical presentation,history and other laboratory results. If the results areinconsistent with clinical evidence, additional testing issuggested to confirm the result. Blood Venous blood specimen / Unknown 04/12/2024 1:25 PM EDT 04/12/2024 2:11 PM EDT us Marlyn De La O MD LAB BLOOD ORDERABLES Final Re sult [facility] [address] [place] [phone] * Pap Smear (12/22/2023 9:40 AM EDT) Swab Cervical swab / Unknown 12/22/2023 9:40 AM EDT 12/25/2023 5:00 AM EDT Narrative [facility] - 01/08/2024 5:16 PM EDT ----- ------- Name: Serenity Carranza ? Age/Sex: 28/F ? : 1995 Unit#: [id number] ?? Attend Dr: Juani Keith MD ?Re12/22/23 ?Status: DEP REF ? Location: HO.CHCLNP ? Disch: ? ----- ------- SPEC : [id number] ?RECD: 12/25/23 ? STATUS: ??SOUT ? REQ NUM: [id number] ? DAYNA: 12/22/23 ? SUBM DR: Juani [...] Keith MD LAB CYTOLOGY ORDERABLES Final Result [facility] [address] [place] [phone] from Last 3 Months or Most Recently Relevant to Health Maintenance Insurance [facility] Care Teams Box Printer Relationship Specialty Start Date End Date Marlyn De La O MD [address] [place] [address] PCP - General Family Medicine 03/14/24
--- OUTSIDE RECORDS SUMMARY | 2024-10-30 12:56 | XMS_ITS | Encounter Summary ---
Author Organization [employer] Address [address] [place] [address] [place] [address] Care Team Providers Care Home Health Travel Ot Name Role Phone Marlyn De La O MD Primary Care Provider [phone] Reason for Visit * Reason Onset Date Comments Med Refill 05/22/2024 Encounter Details Date Type Department Care Team ([facility] Contact Info) Description 05/22/2024 Refill [facility] [address] [place] [address] Marlyn De La O MD [address] [place] [address] Social History Tobacco Use Types Packs/Day Years [...] documented as of this encounter Care Teams Home Health Travel Ot Relationship Specialty Start Date End Date Marlyn De La O MD [address] [place] [address] PCP - General Family Medicine 03/14/24 documented as of this encounter
--- OUTSIDE RECORDS SUMMARY | 2024-10-30 12:56 | XMS_ITS | Encounter Summary ---
Author Organization [employer] Address [address] [place] [address] [place] [address] Care Team Providers Care Guest Relations Executive Name Role Phone Marlyn De La O MD Primary Care Provider [phone] Reason for Visit * Reason Onset Date Comments Med Refill 05/20/2024 Encounter Details Date Type Department Care Team ([facility] Contact Info) Description 05/20/2024 Refill [facility] [address] [place] [address] Marlyn De La O MD [address] [place] [address] Social History Tobacco Use Types Packs/Day Years [...] documented as of this encounter Care Teams Guest Relations Executive Relationship Specialty Start Date End Date Marlyn De La O MD [address] [place] [address] PCP - General Family Medicine 03/14/24 documented as of this encounter
--- OUTSIDE RECORDS SUMMARY | 2024-10-30 12:56 | XMS_ITS | Encounter Summary ---
Author Organization [employer] Address [address] [place] [address] Care Team Providers Care Inside Sales Trainer Name Role Phone Jeff Gomez MD Primary Care Prov ider Marlyn De La O MD Primary Care Provider [phone] Reason for Visit * Reason Onset Date Comments Med Refill 12/24/2023 Encounter Details Date Type Department Care Team ([facility] st Contact Info) Description 12/24/2023 Telephone [facility] [address] [place], [place] [phone] Jeff Gomez MD [address] [place] [address] Med Refill Social History Tobacco Use Types [...] 10:47 AM EDT Tc to pt using [employer] Window Machine Operator [place], [place] [id number]. Pt reports having taken medications and just [...] 9:18 AM EDT Tc to pt using [employer] Window Machine [place], [place] [id number]. Unable to reach pt, open developer operator left message for pt to call back. * Telephone Encounter - Wing Nathan RN - 12/26/2023 12:11 PM EDT Please advise, tc to pt using [employer] General Science Teacher [place], [place] [id number]. Explained BV and candidas. Pt would prefer [...] on filedocumented in this encounter Care Teams Inside Sales Trainer Relationship Specialty Start Date End Date Maldonado Huynh, Jeff, MD [address] [place] [phone] PCP - General Internal Medicine 11/25/23 03/13/24 Marlyn De La O MD [address] [place] [address] PCP - General Family Medicine 03/14/24 documented as of this encounter
--- OUTSIDE RECORDS SUMMARY | 2024-10-30 12:56 | XMS_ITS | Encounter Summary ---
Author Organization [employer] Address [address] [facility] 7 [place] [address] Care Team Providers Care Filler Wiper Name Role Phone Jeff Gomez MD Primary Care Prov ider Marlyn De La O MD Primary Care Provider [phone] Reason for Visit * Reason Onset Date Comments Results 09/28/2023 Encounter Details Date Type Department Care Team (Late st Contact Info) Description 09/28/2023 Telephone [facility] [address] [place] [address] Mary Franks FNP Results Social History Tobacco [...] AM EST Tc to patient via PI #[id number] regarding message below. Pt wants to know [...] culture Date when done: 07/19 Facility: [facility] walk in Please contact pt at [phone] (Hebrew) documented in this encounter Plan of Treatment Not on file documented as of this encounter Visit Diagnoses Not on filedocumented in this encounter Care Teams Filler Wiper Relationship Specialty Start Date End Date Jeff Gomez MD [address] [place] [address] PCP - General Internal Medicine 11/25/23 03/13/24 Marlyn De La O MD [address] [place] [address] PCP - General Family Medicine 03/14/24 documented as of this encounter
--- OUTSIDE RECORDS SUMMARY | 2024-10-30 12:56 | XMS_ITS | Encounter Summary ---
Author Organization [employer] Address [address] [place] [address] [place] [address] Care Team Providers Care Buffing Turner And Counter Name Role Phone Marlyn De La O MD Primary Care Provider [phone] Reason for Visit * Reason Onset Date Comments Med Refill 07/01/2024 Encounter Details Date Type Department Care Team ([facility] Contact Info) Description 07/01/[address] [facility] [address] [place] [address] Marlyn De La O MD [address] [place] [address] Social History Tobacco Use Types Packs/Day Years [...] documented as of this encounter Care Teams Buffing Turner And Counter Relationship Specialty Start Date End Date Marlyn De La O MD [address] [place] [address] PCP - General Family Medicine 03/14/24 documented as of this encounter
== END 2024-10-30 12:17 | disposition home or self-care (01) ==
LOC: HO.HGI 10:59
PROVIDERS: PCP Family Medicine; Visit Provider Nurse Practitioner
DX: K59.04 Chronic idiopathic constipation (principal); R11.2 Nausea with vomiting, unspecified; K21.9 Gastro-esophageal reflux disease without esophagitis; A04.8 Other specified bacterial intestinal infections; R10.10 Upper abdominal pain, unspecified
CPT/HCPCS: 99213

== ENCOUNTER → 2024-10-30 10:58 | Outpatient (BNVA) | payer OTHER, SELFPAY | PROVIDERS: PCP Family Medicine; Visit Provider Nurse Practitioner | DX: K59.04 Chronic idiopathic constipation (principal); K21.9 Gastro-esophageal reflux disease without esophagitis; A04.8 Other specified bacterial intestinal infections; R11.2 Nausea with vomiting, unspecified; R10.10 Upper abdominal pain, unspecified | CPT/HCPCS: 99212 ==

== ENCOUNTER 2025-02-28 10:25 | Outpatient (AMB) | payer OTHER, SELFPAY ==
--- NOTE | 2025-02-28 10:27 | MHC.OFFVIS ---
Vital Signs 02/28/25 10:28 Height 5 ft 6 in Weight 176 lb 5.917 oz BMI 28.5 BP 101/60 Blood Pressure Location Lt brachial Position Sitting Pulse 100 Intake Visit Reasons: follow up [facility] Intake Note: Serenity presents in office today in follow up of [facility]IC. CC: Patient reports that she continues to struggle with constipation but she believes it is related to her . She also reports an episode of bad stomach pain recently that sent her to the bathroom. Thread Puller Required: Yes Accompanied by: Self / Same As Patient Allergies No Known Allergies (No Known Allergies*) Allergy (Verified 10/30/24 11:32) HPI HPI follow up [facility]IC: Details: Assessment & Plan (1) Chronic idiopathic constipation: Code(s): K59.04 - Chronic idiopathic constipation Category: Medical (2) Nausea and vomiting: Code(s): R11.2 - Nausea with vomiting, unspecified Category: Medical (3) GERD (gastroesophageal reflux disease): Code(s): K21.9 - Gastro-esophageal reflux disease without esophagitis Category: Medical (4) H. pylori infection: Comment: Treated in the [place] with Levaquin/amoxicillin Code(s): A04.8 - Other specified bacterial intestinal infections Category: Medical (5) Upper abdominal pain: Code(s): R10.10 - Upper abdominal pain, unspecified Category: Medical Plan Maltese #Maltese #[id number] She is !! She is due 05/25. She continues to have upper abd pain, but no N/V. Still can not move her bowels but the senna did not work at all. Will start famotidine 40mg bid instead of pantorapzole and bisacosyl bid as these are both deemed safe to be used in . Clearly we will have to hold off on the EGD until after she gives . ROV next avail. Medications: New famotidine (Pepcid) 40 mg PO BID 60 tabs 11RF R10.10 - Upper abdominal pain, unspecified bisacodyl (Dulcolax (bisacodyl)) 10 mg (2 x 5 mg) PO BEDTIME 60 tabs 11RF 30 days K59.04 - Chronic idiopathic constipation, R10.10 - Upper abdominal pain, unspecified Discontinued sennosides (Senna Laxative) Discontinued Reason: Doctor's Order 17.2 mg (2 x 8.6 mg) PO BEDTIME 60 tabs 6RF K59.04 - Chronic idiopathic constipation pantoprazole (Protonix) Discontinued Reason: Doctor's Order 40 mg PO BID 30 days 60 tabs 6RF TODAYS VISIT Maltese #Wang Live SHe is at 27 weeks . She is doing well on the famotidine. TIme spent educating her about UTI's as she recently had a [facility] UTI dx'ed at [facility]. She is having difficulty with constipation and MiraLax is probably the best interim solution to this without providing any teratogenic effects. ROV 6 mos. Prior to the she was on pantoprazole and senna. PFSH Surgical History History of esophagogastroduodenoscopy (EGD) H/O breast biopsy Family History Maternal Grandmother Breast cancer Paternal Grandmother Cancer of unknown origin Social History Alcohol intake: never Patient Tobacco Use Status: Never used Tobacco Female Reproductive History Menstrual Age of Menarche: 13 Review of Systems Const Denies fatigue, Denies fever(s), Denies night sweats, Denies poor appetite and Denies weight loss ENT Reports Normal hearing present, Denies dental pain, Denies dysphagia, Denies hearing loss, Denies mouth pain, Denies odynophagia, Denies throat swelling, Denies tongue swelling and Reports other (Dentition adequate) Card Reports no additional complaints Resp Reports no additional complaints GI Details: Denies abdominal pain, Denies melena, Denies bloating, Denies hematochezia, Reports constipation, Denies GI cramping, Denies dysphagia, Denies excessive flatus, Denies early satiety, Reports heartburn, Denies diarrhea, Denies nausea, Denies odynophagia, Denies vomiting and Denies hematemesis Reports dysuria Skin/Breast Denies pruritus, Denies lesions, Denies rash and Denies jaundice Neuro Reports Normal hearing present and Denies Abnormal speech present Endo Denies fatigue Aller/Immun Denies throat swelling and Denies tongue swelling Physical Exam Vital Signs: Last Vital Signs Pulse 100 02/28/25 10:28 BP 101/60 02/28/25 10:28 BMI result Body Mass Index 28.5 Const General: cooperative, no acute distress, well developed and well groomed Nutritional Appearance: average body habitus and well nourished Orientation/consciousness: oriented to person, oriented to place and oriented to time Limitations: language barrier HEENT Head: Yes normocephalic and Yes atraumatic Eyes General: appearance normal, both eyes and all related structures Pupils: Equal, round and reactive pupils present Neck Neck: Yes normal visual inspection and Yes no lymphadenopathy Thyroid: Thyroid normal Resp Effort & Inspection: normal respiratory effort and able to speak in complete sentences Auscultation: clear to auscultation bilaterally Cardio Rate: regular rate Rhythm: regular rhythm Heart sounds: Normal, physiologic split S2 sound present Peripheral pulses: radial pulses present and posterior tibial pulses present GI Inspection: No distended and No Abdominal panniculus present Palpation (GI): Soft to palpation, nontender, no guarding, not rigid and No hepatosplenomegaly present Percussion: Yes normal to percussion Auscultation: normal bowel sounds Rectal Exam - Female: deferred Skin General skin exam: no rashes or lesions noted, turgor normal, skin not dry, no jaundice, No spider nevi and no striae Rashes: no rashes Nails: normal Neuro General: oriented to person, oriented to place and oriented to time Cranial nerves: Yes Equal, round and reactive pupils present and Yes Normal hearing present Speech: No Abnormal speech present Extrem General: Yes normal to inspection, No clubbing, No cyanosis and No edema Psych Appearance: grossly normal and well kempt Mental Status: mental status grossly normal Speech and movement: Normal speech and movement present Affect: normal affect Attitude: cooperative Thought process: Normal thought process present and not confabulating Thought content: Normal thought content present Insight: Limited insight present (Psych) Judgement: Limited judgement present (Psych) Assessment & Plan Assessment & Plan (1) Chronic idiopathic constipation: Code(s): K59.04 - Chronic idiopathic constipation Category: Medical (2) GERD (gastroesophageal reflux disease): Code(s): K21.9 - Gastro-esophageal reflux disease without esophagitis Category: Medical Plan Maltese #Tachira Live SHe is at 27 weeks . She is doing well on the famotidine. TIme spent educating her about UTI's as she recently had a klebsiela UTI dx'ed at [facility]. She is having difficulty with constipation and MiraLax is probably the best interim solution to this without providing any teratogenic effects. ROV 6 mos. Prior to the she was on pantoprazole and senna. Medications: New polyethylene glycol 3350 (Miralax) 17 grams PO DAILY 510 grams 6RF 30 days K59.04 - Chronic idiopathic constipation Coding Level of Care Code Est Pt Level 3 (99677) Diagnoses Chronic idiopathic constipation K59.04 GERD (gastroesophageal reflux disease) K21.9
[2025-02-28 10:28] VITALS: BP 101/60; PULSE 100; BMI 28.5
--- OUTSIDE RECORDS SUMMARY | 2025-02-28 10:29 | XMS_ITS | Encounter Summary ---
Author Organization [employer] Address [address] [place] [address] [place] [address] Care Team Providers Care Whizzer Hand Name Role Phone Jeff Gomez MD Primary Care Prov ider Marlyn De La O MD Primary Care Provider [phone] Reason for Visit * Reason Onset Date Comments Med Refill 12/24/2023 Encounter Details Date Type Department Care Team ([facility] st Contact Info) Description 12/24/2023 Telephone [facility] [address] [place] [place], [place] [id number] Jeff Gomez MD [address] [place] [address] Med Refill Social History Tobacco Use Types [...] 10:47 AM EDT Tc to pt using [facility] [employer] [facility] [employer] [place], [place] [id number]. Pt reports having taken medications and just [...] 9:18 AM EDT Tc to pt using [employer] [place], [place] [id number]. Unable to reach pt, nozzle and sleeve worker left message for pt to call back. * Telephone Encounter - Wing Nathan RN - 12/26/2023 12:11 PM EDT Please advise, tc to pt using [employer] [place], [place] [id number]. Explained BV and candidas. Pt would prefer [...] on filedocumented in this encounter Care Teams Whizzer Hand Relationship Specialty Start Date End Date Jeff Gomez MD [address] [place] [id number] PCP - General Internal Medicine 11/25/23 03/13/24 Marlyn De La O MD [address] [place] [id number] PCP - General Family Medicine 03/14/24 documented as of this encounter
== END 2025-02-28 11:12 | disposition home or self-care (01) ==
LOC: HO.HGI 10:26
PROVIDERS: PCP Family Medicine; Visit Provider Nurse Practitioner
DX: K59.04 Chronic idiopathic constipation (principal); K21.9 Gastro-esophageal reflux disease without esophagitis
CPT/HCPCS: 99213

== ENCOUNTER → 2025-02-28 10:25 | Outpatient (BNVA) | payer OTHER, SELFPAY | PROVIDERS: PCP Family Medicine; Visit Provider Nurse Practitioner | DX: K59.04 Chronic idiopathic constipation (principal); K21.9 Gastro-esophageal reflux disease without esophagitis | CPT/HCPCS: 99212 ==